=== PATIENT | female | born 1955 | race Caucasian/White ===

== ENCOUNTER → 2017-08-05 | Outpatient (CLI) | payer BC ==
[~2017-08-05] MED LIST: ESTR2TAB PO; FURO40TA PO; LEVO125T4 PO; ONETAB10 PO; PROP60CA PO; SYMB160A INH; TEMA15CA PO; TRAM50 PO; [UNRECOGNIZED DRUG - CODE] PO
--- NOTE | 2017-08-05 12:46 | RADRPT ---
EXAM DATE/TIME: 08/05/2017 11:50 [place] COMPARISON: No previous studies available for comparison. INDICATIONS : evaluate for pneumonia, pneumothorax and communicable diseases. Pre-op uterine surgery MEDICAL HISTORY : None. SURGICAL HISTORY : None. ENCOUNTER: Initial ACUITY: 1 day PAIN SCORE: 0/10 LOCATION: chest FINDINGS: The heart size is normal. There is minimal linear density at the lateral left base likely representin g minimal atelectasis. Otherwise, the lungs are clear. No effusion is seen. There is a mild dextrocur vature of the thoracic spine and a more prominent levocurvature of the thoracolumbar region. CONCLUSION: No acute disease. Dominic Hermosillo MD on August 05, 2017 at 12:43 Board Certified Radiologist. This report was verified electronically.
--- NOTE | 2017-08-05 19:04 | EKG ---
Date Performed: 08/05/2017 Time Performed: 10:28:00 PTAGE: 62 years EKG: SINUS BRADYCARDIA POSSIBLE LEFT ATRIAL ENLARGEMENT BORDERLINE ECG NO PREVIOUS TRACING DOCTOR: Austin Goodwin Interpretating Date/Time 08/05/2017 19:03:49
== END ==
LOC: CPRE 10:10
PROVIDERS: ATTEND Obstetrics & Gynecology Gynecologic Oncology
DX: Z01.810 Encounter for preprocedural cardiovascular examination (principal); Z01.811 Encounter for preprocedural respiratory examination; Z01.812 Encounter for preprocedural laboratory examination; Z01.818 Encounter for other preprocedural examination; R19.06 Epigastric swelling, mass or lump; R94.31 Abnormal electrocardiogram [ECG] [EKG]
CPT/HCPCS: 71046; 93005

== ENCOUNTER 2017-08-09 05:20 | Inpatient (IN) | END 2017-08-12 09:57 | disposition home or self-care (01) | DRG 738 | DX: C56.1 Malignant neoplasm of right ovary (principal); D27.1 Benign neoplasm of left ovary; N73.6 Female pelvic peritoneal adhesions (postinfective); R11.2 Nausea with vomiting, unspecified; T40.2X5A Adverse effect of other opioids, initial encounter; Z90.710 Acquired absence of both cervix and uterus; Z88.5 Allergy status to narcotic agent; Z88.8 Allergy status to other drugs, medicaments and biological substances; E03.9 Hypothyroidism, unspecified; J45.909 Unspecified asthma, uncomplicated ==

== ENCOUNTER 2017-09-02 05:51 | Day surgery (SDC) | payer BC ==
[~2017-09-02] VITALS: Ht 160 cm; Wt 62.3 kg
[2017-09-02] VITALS (7 sets, daily range): BP systolic 87–106; BP diastolic 56–69; PULSE 52–67; RESP 16–20; TEMP 97.5–97.7; O2SAT 98–100
[2017-09-02] MEDS ORDERED: TUMS500C CHEW (06:54)
[2017-09-02] MEDS ORDERED: CALC500T8 PO (06:54)
[2017-09-02] MEDS ORDERED: CHOL5000 PO (06:54)
[2017-09-02] MEDS ORDERED: CYAN25005 (06:54)
[2017-09-02] MEDS ORDERED: LACTCAP8 PO (06:54)
[2017-09-02] MEDS ORDERED: LORA0.5T PO (06:54)
[2017-09-02] MEDS ORDERED: TRIA1SPR6 EACH NARE (06:54)
[2017-09-02] MEDS ORDERED: DULC100C PO (06:54)
[2017-09-02] MEDS ORDERED: TYLE325T PO (06:54)
[2017-09-02] MEDS ORDERED: MIRA3350 PO (06:54)
[2017-09-02] MEDS ORDERED: VANCOMYCIN 1000 MG/NS 250 ML - implanted port/tunneled catheter IV SCH ×2 (07:00)
[2017-09-02] MEDS ORDERED: POVIDONE IODINE 5% (ANTISEPSIS KIT) 4 APPLICATIONS EACH NARE SCH (07:00)
[2017-09-02] MEDS ORDERED: ceFAZolin 2 GM PREMIX 50 ML - implanted port/tunneled catheter insertion IV SCH (07:00)
[2017-09-02] MEDS ORDERED: SODIUM CHLORIDE 0.9% 1000 ML IV SCH (07:00)
[2017-09-02] MEDS: CHLORHEXIDINE GLUCONATE 2 % 1 PACK (2 CLOTHS) TOPICAL SCH ×2 (07:44→07:45)
[2017-09-02] MEDS ORDERED: MIDAZOLAM HCL 5 MG/5 ML VIAL ONE (07:52)
[2017-09-02] MEDS ORDERED: fentaNYL CITRATE 250 MCG/5 ML AMP ONE (07:52)
[2017-09-02] MEDS ORDERED: LIDOCAINE 1%/EPINEPHrine 1:100,000 SOLN 30 ML VIAL ONE (07:55)
[2017-09-02] MEDS ORDERED: diphenhydrAMINE HCL 50 MG/ML VIAL ONE (08:40)
--- NOTE | 2017-09-02 09:20 | PD.RAD ---
Post Procedure Progress Note Pre Procedure Diagnosis: (1) Gynecologic malignancy Post Procedure Diagnosis: (1) Gynecologic malignancy Procedure Date: Sep 02, 2017 Supervising Radiologist: Jere Montoya JR Proceduralist/Assist: Juan David Doty, RT(R), Micheal Johnson RT(R) Anesthesia: Conscious Sedation Plan of Activity Patient to Unit: ROPU Patient Condition: Good See PACS Report for procedural detail/treatment Central Venous Access Device Procedure 1 Right Internal Jugular Infusaport Placement single lumen Thai: 8 Findings: Port in good position and functions well. OK to use. Plan F/U with IR or a physician in 10-14 days for a site check. Jr. Jan,Jere Wolf MD Sep 02, 2017 09:20
[2017-09-02] MEDS ORDERED: SODIUM CHLORIDE 0.9% FLUSH 10 ML FLUSH IVF PRN (09:30)
--- NOTE | 2017-09-02 11:22 | RADRPT ---
EXAM DATE: 09/02/2017 9:35 AM EDT AGE/SEX: 62 years / Female INDICATIONS: Patient presents with ovarian cancer in need of port placement for chemotherapy adminis tration. CLINICAL DATA: This is the patient's initial encounter. Patient reports that signs and symptoms have been present for 3 weeks and indicates a pain score of 2/10. MEDICAL/SURGICAL HISTORY: . HTN Migraines Asthma Hiatal hernia hypothyroidism . Hysterectomy L eft shoulder bone spur repair COMPARISON: No prior exams available for comparison. FLUORO TIME (min): 1.32 IMAGE SERIES: 3 SEDATION TIME (min): 45 MEDICATION(S): 2.5 mg midazolam (Versed) IV 125 mcg fentanyl (Sublimaze) IV 25 mg Benadryl Vancomycin within 2 hrs of procedure, Ancef (or alternative) within 1 hr of procedure. DEVICE(S): Right 8fr Xcela plus port . . PROCEDURE : 1. Continuous pulse oximetry and EKG monitoring. 2. Intravenous conscious sedation. 3. Ultrasound guidance for venous access. 4. Fluoroscopic guided implantable central venous port placement. The patient was placed supine. The neck was prepped in sterile fashion. Full sterile technique was u sed, including cap, mask, sterile gloves and gown, and a large sterile sheet. Hand hygiene and 2% ch lorhexidine Betadine was utilized per protocol for cutaneous antisepsis with appropriate dry time for site. Sterile gel and sterile probe cover were utilized for ultrasound guidance. The skin and sub cutaneous tissues were infiltrated with local anesthetic solution. Under direct ultrasound guidance, central venous access was accomplished in the targeted vessel. The ultrasound images depicting access guidance were stored and saved to PACS for permanent record. A s ubcutaneous pocket was created using blunt dissection. The port was introduced to the pocket. The c atheter tubing was fed through a subcutaneous tunnel to the venotomy site. The catheter tubing was c ut to a suitable length and then was introduced through a valved Peel-Away sheath and positioned with catheter tubing tip at the cavo-atrial junction level. The pocket incision was closed with subcutic ular Vicryl suture. Steri-Strips were applied. The port was flushed and locked with heparin solutio n per protocol. Sterile dressing was applied to the site. The patient tolerated the procedure well. Conscious sedation was performed with the prescribed dosages and duration as above in the presence of an independent trained radiology nurse to assist in the monitoring of the patient. EKG and oximetry remained stable throughout the procedure. The patient tolerated the procedure well and there were no complications. The patient was sent to post anesthesia recovery in stable condition. CONCLUSION: 1. Uncomplicated ultrasound and fluoroscopic guided implanted central venous port catheter placement as described in detail above. An 8 [employer] [place] Power port was placed. Electronically signed by: Jere Montoya MD 09/02/2017 11:21 AM EDT
[2017-09-02] MEDS ORDERED: ACETAMINOPHEN 325 MG TAB PO ONE (12:15)
== END 2017-09-02 12:34 | disposition home or self-care (01) ==
LOC: HRIP 05:51 → HROP 05:51 → HRIP 06:44 → HROP 12:34
PROVIDERS: ATTEND Obstetrics & Gynecology Gynecologic Oncology
DX: C56.9 Malignant neoplasm of unspecified ovary (principal); Z45.2 Encounter for adjustment and management of vascular access device; I10 Essential (primary) hypertension; J45.909 Unspecified asthma, uncomplicated; K44.9 Diaphragmatic hernia without obstruction or gangrene; E03.9 Hypothyroidism, unspecified; Z90.710 Acquired absence of both cervix and uterus
CPT/HCPCS: 36561; 76937; 77001; 99152; 99153; C1788; J0690; J1200; J1642; J2250; J3010; J3370; J7030; J7050

== ENCOUNTER 2017-09-15 22:07 | Inpatient (IN) | payer BC ==
[~2017-09-15] VITALS: Ht 162.6 cm; Wt 68.0 kg
[~2017-09-15 22:07] MED LIST changes: +CALC500T8 PO; +CHOL5000 PO; +CYAN25005; +DULC100C PO; +LACTCAP8 PO; +LORA0.5T PO; +MIRA3350 PO; +TRIA1SPR6 EACH NARE; +TUMS500C CHEW; +TYLE325T PO
[2017-09-15 22:17] VITALS: BP 104/76; PULSE 87; RESP 17; TEMP 99.1; O2SAT 96
[2017-09-15 23:53] LABS: AUTOMATED NEUTROPHIL # 1.5 TH/MM3 (1.8-7.7); BASOPHIL % 0.6 % (0.0-2.0); EOSINOPHIL # 0.1 TH/MM3 (0-0.4); EOSINOPHIL % 4.3 % (0.0-4.0); HEMATOCRIT 38.8 % (35.0-46.0); HEMOGLOBIN 13.1 GM/DL (11.6-15.3); LYMPH % 18.5 % (9.0-44.0); LYMPHOCYTE # 0.4 TH/MM3 (1.0-4.8); MEAN CELL VOLUME 95.7 FL (80.0-100.0); MEAN CORPUSCULAR HEMOGLOBIN 32.4 PG (27.0-34.0); MEAN CORPUSCULAR HGB CONC 33.8 % (32.0-36.0); MEAN PLATELET VOLUME 7.9 FL (7.0-11.0); MONO % 5.3 % (0.0-8.0); MONOCYTE # 0.1 TH/MM3 (0-0.9); NEUT % 71.3 % (16.0-70.0); PLATELET COUNT 197 TH/MM3 (150-450); RED BLOOD COUNT 4.05 MIL/MM3 (4.00-5.30); RED CELL DISTRIBUTION WIDTH 12.2 % (11.6-17.2); WHITE BLOOD COUNT 2.1 TH/MM3 (4.0-11.0)
--- NOTE | 2017-09-15 23:58 | RADRPT ---
EXAM DATE: 09/15/2017 11:56 PM EDT AGE/SEX: 62 years / Female INDICATIONS: Fever, patient undergoing chemotherapy for ovarian cancer. CLINICAL DATA: This is the patient's initial encounter. Patient reports that signs and symptoms have been present for 1 day and indicates a pain score of 0/10. MEDICAL/SURGICAL HISTORY: Carcinoma, ovarian. . [id number] COMPARISON: [facility] [place] CHEST PA & LAT, 08/05/2017. . FINDINGS: PA and lateral views of the chest demonstrate the lungs to be symmetrically aerated without evidence of mass, infiltrate or effusion. The cardiomediastinal contours are unremarkable. Osseous structures are intact. Right IJ Utbsus-w-Doqw catheter in excellent position CONCLUSION: The lungs are clear. Right IJ Lmhlsf-t-Jhvg catheter in good position. Electronically signed by: Gerardo Laird MD 09/15/2017 11:57 PM EDT
[2017-09-16] VITALS (9 sets, daily range): BP systolic 91–106; BP diastolic 53–74; PULSE 69–87; RESP 16–20; TEMP 98.4–101.9; O2SAT 94–98
[2017-09-16 00:08] LABS: BACTERIA, URINE OCC /hpf; BILIRUBIN, URINE NEG (NEG); BLOOD, URINE NEG (NEG); GLUCOSE,URINE NEG (NEG); KETONE, URINE TRACE mg/dL (NEG); MUCUS URINE FEW /lpf (OCC); NITRITE,URINE NEG (NEG); SQUAMOUS EPITHELIAL CELL URINE 2 /hpf (0-5); URINE COLOR YELLOW (YELLW/STRAW); URINE LEUKOCYTE ESTERASE NEG (NEG)
--- NOTE | 2017-09-16 00:13 | PD ---
HPI Chief Complaint: Fever Time Seen by Provider: 22:55 Travel History International Travel<30 days: No Contact w/Intl Traveler<30days: No Traveled to known affect area: No History of Present Illness HPI She is a 62-year-old female who has ovarian cancer who recently had a total hysterectomy on August 09 and then started Taxol and cisplatin for chemotherapy a week ago she had a shaking chill episode last night and then today again she had shaking chills her took her temp it was 101.3 she denies cough she denies sore throat she denies dysuria she says she has not moved her bowels in 2 days because she has been on oxycodone which was switched she was on tramadol now she is on a stronger pain medication. She is followed by her oncologist and she is coming in knowing that she is immune compromised immune suppressed as well as having a fever PFSH Past Medical History Cancer: Yes Cardiovascular Problems: No Chemotherapy: Yes Diabetes: No Endocrine: Yes Gastrointestinal Disorders: Yes Genitourinary: No Hepatitis: No Hiatal Hernia: Yes Hypertension: Yes Immune Disorder: No Medical other: No Musculoskeletal: No Neurologic: No Psychiatric: No Reproductive: Yes Respiratory: Yes (asthma) Migraines: Yes Thyroid Disease: Yes ?: Not Past Surgical History AICD: No Body Medical Devices: R SCREW IN FOOT Hysterectomy: Yes Joint Replacement: No Pacemaker: No Other Surgery: Yes Social History Alcohol Use: No Tobacco Use: No Substance Use: No Allergies-Medications (Allergen,Severity, Reaction): Coded Allergies: mold (Verified Allergy, Severe, Shortness of Breath, 09/15/17) BLACK MOLD CAUSES PULM EDEMA adhesive (Verified Adverse Reaction, Severe, Irritation, 09/15/17) PT CAN TOLERATE PAPER TAPE codeine (Verified Adverse Reaction, Severe, Itching, 09/15/17) Reported Meds & Prescriptions Reported Meds & Active Scripts Active Reported Oxycodone (Oxycodone HCl) 5 Mg Cap 5 Mg PO Q4H PRN Lorazepam 0.5 Mg Tab 0.5 Mg PO Q6H PRN Tylenol (Acetaminophen) 325 Mg Tab 325 Mg PO Q4H PRN Tums (Calcium Carbonate (Antacid)) 500 Mg Chew 500 Mg CHEW Dulcolax Stool Softener (Docusate Sodium) 100 Mg Cap 100 Mg PO BID Miralax Powder (Polyethylene Glycol 3350 Powder) 17 Gm Powd 17 Gm PO DAILY Mix and dissolve one measuring cap-ful (17 grams) in water or juice. Probiotic (Lactobacillus Acidophilus) 10 Billion Cell Cap 1 Cap PO DAILY Vitamin B12 (Cyanocobalamin (Vitamin B-12)) 2,500 Mcg Tab.chew 2 Tab DAILY Vitamin D3 (Cholecalciferol) 5,000 Unit Cap 5,000 Units PO DAILY Calcium Oyster Shell (Calcium Carbonate) 1,250 Mg Tab 1,200 Mg PO DAILY 1,250 mg calcium carbonate (500 mg elemental calcium) Nasacort Allergy 24Hr Nasal (Triamcinolone Nasal) 55 Mcg Spr 1 [place] EACH NARE BID One Daily For Women 50+A (Multiple Vitamins W/ Minerals) 400 Mcg-120 Mg Tab 1 Tab PO DAILY Wal-Dryl Allergy (Diphenhydramine HCl) 25 Mg Cap 1 Caplet PO DAILY Temazepam 15 Mg Cap 15 Mg PO HS PRN Symbicort Inh (Budesonide/Formoterol Fumarate) 160-4.5 Mcg/Act Aero 2 Puff INH Q12HR Furosemide 40 Mg Tab 40 Mg PO DAILY PRN TAKES WHEN LEG SWELLING OCCURS Estradiol 2 Mg Tab 2 Mg PO DAILY Propranolol ER 24 HR (Propranolol HCl) 60 Mg Cap 60 Mg PO DAILY Levothyroxine (Levothyroxine Sodium) 125 Mcg Tab 125 Mcg PO HS Review of Systems Except as stated in HPI: all other systems reviewed are Neg General / Constitutional: Positive: Fever, Chills Physical Exam Narrative GENERAL: non toxic appearing SKIN: Warm and dry. HEAD: Atraumatic. Normocephalic. EYES: Pupils equal and round. No scleral icterus. No injection or drainage. ENT: No nasal bleeding or discharge. Mucous membranes pink and moist. NECK: Trachea midline. No JVD. CARDIOVASCULAR: Regular rate and rhythm. chest right port under skin no sign of infection RESPIRATORY: No accessory muscle use. Clear to auscultation. Breath sounds equal bilaterally. GASTROINTESTINAL: Abdomen soft, non-tender, nondistended. Hepatic and splenic margins not palpable. MUSCULOSKELETAL: Extremities without clubbing, cyanosis, or edema. No obvious deformities. NEUROLOGICAL: Awake and alert. No obvious cranial nerve deficits. Motor grossly within normal limits. Five out of 5 muscle strength in the arms and legs. Normal speech. PSYCHIATRIC: Appropriate mood and affect; insight and judgment normal. Data Data Last Documented VS Vital Signs Date Time Temp Pulse Resp B/P (MAP) Pulse Ox O2 Delivery O2 Flow Rate FiO2 09/15/17 22:37 Room Air 09/15/17 22:17 99.1 87 17 104/76 (85) 96 Orders Orders Complete Blood Count With Diff (09/15/17 23:08) Comprehensive Metabolic Panel (09/15/17 23:08) Ckmb (Isoenzyme) Profile (09/15/17 23:08) Troponin I (09/15/17 23:08) Lipase (09/15/17 23:08) Urinalysis - C+S If Indicated (09/15/17 23:08) Chest, Pa & Lat (09/15/17 23:08) Blood Culture (09/15/17 23:31) Vancomycin Inj (Vancomycin Inj) (09/16/17 00:30) Cefepime Inj (Maxipime Inj) (09/16/17 00:30) Admit Order (Ed Use Only) (09/16/17 00:45) Labs Laboratory Tests Test 09/15/17 23:30 White Blood Count 2.1 TH/MM3 Red Blood Count 4.05 MIL/MM3 Hemoglobin 13.1 GM/DL Hematocrit 38.8 % Mean Corpuscular Volume 95.7 FL Mean Corpuscular Hemoglobin 32.4 PG Mean Corpuscular Hemoglobin Concent 33.8 % Red Cell Distribution Width 12.2 % Platelet Count 197 TH/MM3 Mean Platelet Volume 7.9 FL Neutrophils (%) (Auto) 71.3 % Lymphocytes (%) (Auto) 18.5 % Monocytes (%) (Auto) 5.3 % Eosinophils (%) (Auto) 4.3 % Basophils (%) (Auto) 0.6 % Neutrophils # (Auto) 1.5 TH/MM3 Lymphocytes # (Auto) 0.4 TH/MM3 Monocytes # (Auto) 0.1 TH/MM3 Eosinophils # (Auto) 0.1 TH/MM3 Basophils # (Auto) 0.0 TH/MM3 CBC Comment DIFF FINAL Differential Comment Urine Color YELLOW Urine Turbidity CLEAR Urine pH 6.0 Urine Specific [place] 1.004 Urine Protein NEG mg/dL Urine Glucose (UA) NEG mg/dL Urine Ketones TRACE mg/dL Urine Occult Blood NEG Urine Nitrite NEG Urine Bilirubin NEG Urine Urobilinogen LESS THAN 2 mg/dL Urine Leukocyte Esterase NEG Urine RBC 1 /hpf Urine WBC 1 /hpf Urine Squamous Epithelial Cells 2 /hpf Urine Bacteria OCC /hpf Urine Mucus FEW /lpf Microscopic Urinalysis Comment CULT NOT INDICATED Blood Urea Nitrogen 11 MG/DL Creatinine 1.09 MG/DL Random Glucose 103 MG/DL Total Protein 6.3 GM/DL Albumin 3.0 GM/DL Calcium Level 8.7 MG/DL Alkaline Phosphatase 272 U/L Aspartate Amino Transf (AST/SGOT) 116 U/L Alanine Aminotransferase (ALT/SGPT) 130 U/L Total Bilirubin 0.8 MG/DL Sodium Level 130 MEQ/L Potassium Level 3.5 MEQ/L Chloride Level 91 MEQ/L Carbon Dioxide Level 28.6 MEQ/L Anion Gap 10 MEQ/L Estimat Glomerular Filtration Rate 51 ML/MIN Total Creatine Kinase 23 U/L Troponin I LESS THAN 0.02 NG/ML Lipase 66 U/L MDM Medical Decision Making Medical Screen Exam Complete: Yes Emergency Medical Condition: Yes Differential Diagnosis fever and chemo risk of occult bacterial infection in immune compromised state , pt could have viral illness fever or uti or PNA or bacteremia , Cental line port infection Narrative Course Vanco 1gm and Cefepime 2 gm and admit reverse isolation urine and Chest XR did not reveal source possible port infection Physician Communication Physician Communication Spoke to Dr severino of ONC for doctor Multis CLERK CARRIER /ONC and will admit and consult CLERK CAR[facility] ONC Diagnosis Primary Impression: Fever and neutropenia Admitting Information Admitting Physician Requests: Admit Td Chavira MD Sep 16, 2017 00:13
[2017-09-16 00:17] LABS: ALT (GPT) 130 U/L (10-53); AST (GOT) 116 U/L (15-37); BICARBONATE 28.6 MEQ/L (21.0-32.0); BLOOD UREA NITROGEN 11 MG/DL (7-18); CALCIUM 8.7 MG/DL (8.5-10.1); CHLORIDE 91 MEQ/L (98-107); CREATININE 1.09 MG/DL (0.50-1.00); GLOMERULAR FILTRATION RATE 51 ML/MIN (>89); GLUCOSE,RANDOM 103 MG/DL (74-106); SODIUM (NA) 130 MEQ/L (136-145)
[2017-09-16 00:21] LABS: ALKALINE PHOSPHATASE 272 U/L (45-117); TOTAL BILIRUBIN ADULT 0.8 MG/DL (0.2-1.0); TOTAL PROTEIN 6.3 GM/DL (6.4-8.2); TROPONIN I LESS THAN 0.02 NG/ML (0.02-0.05)
[2017-09-16] MEDS ORDERED: VANCOMYCIN INJ 1,000 MG in SODIUM CHLOR 0.9% 250 ML INJ 250 ML IV ONE (00:30)
[2017-09-16] MEDS ORDERED: CEFEPIME INJ 2,000 MG in SODIUM CHLORIDE 0.9% INJ 100 ML IV ONE (00:30)
[2017-09-16] MEDS ORDERED: SENNOSIDES 8.6 MG TAB PO PRN (01:00)
[2017-09-16] MEDS ORDERED: NALOXONE HCL 0.4 MG/ML AMP IV PUSH PRN (01:00)
[2017-09-16] MEDS ORDERED: Vancomycin Consult Pharmacy 1 EA OTHER SCH (01:00)
[2017-09-16] MEDS ORDERED: SODIUM CHLORIDE 0.9% FLUSH 10 ML FLUSH IV FLUSH PRN (01:00)
[2017-09-16] MEDS ORDERED: BISACODYL 10 MG SUPP RECTAL PRN (01:00)
[2017-09-16] MEDS ORDERED: MAGNESIUM HYDROXIDE SUSP 30 ML CUP PO PRN (01:00)
[2017-09-16] MEDS ORDERED: LACTULOSE SYRUP 20 GM/30 ML CUP PO PRN (01:00)
[2017-09-16] MEDS ORDERED: ONDANSETRON ODT 4 MG TAB PO PRN (01:00)
--- NOTE | 2017-09-16 01:33 | HHI.HP ---
[facility] Service [facility] Primary Care Physician Betito Fonseca MD Admission Diagnosis neutropenic fever Diagnoses: Chief Complaint: fever Travel History International Travel<30 Days: No Contact w/Intl Traveler <30 Da: No Traveled to Known Affected Are: No History of Present Illness 62 y/o female with a history of ovarian cancer, asthma, and hypothyroidism presented to the ED with complaints of a fever of 101 at home. Patient just received her first chemo treatment on Wednesday and was told that if she ran a fever to come to the ED. She has associated chills and nausea. Denies any chest pain or sob. STOCK LAYER Oncologist: Dr. Paul Review of Systems Except as stated in HPI: all other systems reviewed are Neg Past Family Social History Past Medical History Asthma Hypothyroidism Migraine Mixed hyperlipidemia Past Surgical History Hysterectomy RIGHT BUNIONECTOMY SHOULDER SURGERY Colonoscopy in 2017 Reported Medications Reported Meds & Active Scripts Active Ultram (Tramadol HCl) 50 Mg Tab 50 Mg PO Q4H PRN 7 Days Reported Lorazepam 0.5 Mg Tab 0.5 Mg PO Q6H PRN Tylenol (Acetaminophen) 325 Mg Tab 325 Mg PO Q4H PRN Tums (Calcium Carbonate (Antacid)) 500 Mg Chew 500 Mg CHEW Dulcolax Stool Softener (Docusate Sodium) 100 Mg Cap 100 Mg PO BID Miralax Powder (Polyethylene Glycol 3350 Powder) 17 Gm Powd 17 Gm PO DAILY Mix and dissolve one measuring cap-ful (17 grams) in water or juice. Probiotic (Lactobacillus Acidophilus) 10 Billion Cell Cap 1 Cap PO DAILY Vitamin B12 (Cyanocobalamin (Vitamin B-12)) 2,500 Mcg Tab.chew 2 Tab DAILY Vitamin D3 (Cholecalciferol) 5,000 Unit Cap 5,000 Units PO DAILY Calcium Oyster Shell (Calcium Carbonate) 1,250 Mg Tab 1,200 Mg PO DAILY 1,250 mg calcium carbonate (500 mg elemental calcium) Nasacort Allergy 24Hr Nasal (Triamcinolone Nasal) 55 Mcg Spr 1 [place] EACH NARE BID One Daily For Women 50+A (Multiple Vitamins W/ Minerals) 400 Mcg-120 Mg Tab 1 Tab PO DAILY Wal-Dryl Allergy (Diphenhydramine HCl) 25 Mg Cap 1 Caplet PO DAILY Temazepam 15 Mg Cap 15 Mg PO HS PRN Symbicort Inh (Budesonide/Formoterol Fumarate) 160-4.5 Mcg/Act Aero 2 Puff INH Q12HR Furosemide 40 Mg Tab 40 Mg PO DAILY PRN TAKES WHEN LEG SWELLING OCCURS Estradiol 2 Mg Tab 2 Mg PO DAILY Propranolol ER 24 HR (Propranolol HCl) 60 Mg Cap 60 Mg PO DAILY Levothyroxine (Levothyroxine Sodium) 125 Mcg Tab 125 Mcg PO HS Allergies: Coded Allergies: mold (Verified Allergy, Severe, Shortness of Breath, 09/15/17) BLACK MOLD CAUSES PULM EDEMA adhesive (Verified Adverse Reaction, Severe, Irritation, 09/15/17) PT CAN TOLERATE PAPER TAPE codeine (Verified Adverse Reaction, Severe, Itching, 09/15/17) Active Ordered Medications Current Medications Medications (Trade) Dose Ordered Sig/Elmo Route Start Time Stop Time Status Last Admin Vancomycin HCl 1000 mg/Sodium Chloride 250 ml @ 250 mls/hr ONCE ONCE IV 09/16/17 00:30 09/16/17 01:29 09/16/17 01:15 Pharmacy Profile Note 0 ml @ 0 mls/hr UNSCH OTHER 09/16/17 01:00 Cefepime HCl 2000 mg/Sodium Chloride 100 ml @ 200 mls/hr Q8H IV 09/16/17 08:30 Sodium Chloride 1,000 ml @ 70 mls/hr [id number] IV 09/16/17 00:52 (NS Flush) 2 ml UNSCH PRN IV FLUSH 09/16/17 01:00 (NS Flush) 2 ml BID IV FLUSH 09/16/17 09:00 (Tylenol) 650 mg Q4H PRN PO 09/16/17 01:00 (Zofran Odt) 4 mg Q6H PRN PO 09/16/17 01:00 (Lovenox Inj) 40 mg Q24H SQ 09/16/17 01:00 (Narcan Inj) 0.4 mg UNSCH PRN IV PUSH 09/16/17 01:00 (Ngoc-Colace) 1 tab BID PO 09/16/17 09:00 (Milk Of Magnesia Liq) 30 ml Q12H PRN PO 09/16/17 01:00 (Senokot) 17.2 mg Q12H PRN PO 09/16/17 01:00 (Dulcolax Supp) 10 mg DAILY PRN RECTAL 09/16/17 01:00 (Lactulose Liq) 30 ml DAILY PRN PO 09/16/17 01:00 Family History Mom: Breast CA, colon CA and melanoma Brother: colon cancer Social History Patient denies any tobacco, alcohol and illicit drug use Physical Exam Vital Signs Vital Signs Date Time Temp Pulse Resp B/P (MAP) Pulse Ox O2 Delivery O2 Flow Rate FiO2 09/16/17 00:50 100.3 09/15/17 22:37 Room Air 09/15/17 22:17 99.1 87 17 104/76 (85) 96 Room Air Physical Exam GENERAL: This is a well-nourished, well-developed patient, in no apparent distress. SKIN: No rashes, ecchymoses or lesions. Cool and dry. HEAD: Atraumatic. Normocephalic. EYES: Pupils equal round and reactive. Extraocular motions intact. CARDIOVASCULAR: Regular rate and rhythm without murmurs, gallops, or rubs. RESPIRATORY: Clear to auscultation. Breath sounds equal bilaterally. No wheezes , rales, or rhonchi. GASTROINTESTINAL: Abdomen soft, non-tender, nondistended. No guarding. MUSCULOSKELETAL: Extremities without clubbing, cyanosis, or edema. No calf tenderness. NEUROLOGICAL: Awake and alert. Normal speech. Laboratory Laboratory Tests Test 09/15/17 23:30 White Blood Count 2.1 Red Blood Count 4.05 Hemoglobin 13.1 Hematocrit 38.8 Mean Corpuscular Volume 95.7 Mean Corpuscular Hemoglobin 32.4 Mean Corpuscular Hemoglobin Concent 33.8 Red Cell Distribution Width 12.2 Platelet Count 197 Mean Platelet Volume 7.9 Neutrophils (%) (Auto) 71.3 Lymphocytes (%) (Auto) 18.5 Monocytes (%) (Auto) 5.3 Eosinophils (%) (Auto) 4.3 Basophils (%) (Auto) 0.6 Neutrophils # (Auto) 1.5 Lymphocytes # (Auto) 0.4 Monocytes # (Auto) 0.1 Eosinophils # (Auto) 0.1 Basophils # (Auto) 0.0 CBC Comment DIFF FINAL Differential Comment Urine Color YELLOW Urine Turbidity CLEAR Urine pH 6.0 Urine Specific [place] 1.004 Urine Protein NEG Urine Glucose (UA) NEG Urine Ketones TRACE Urine Occult Blood NEG Urine Nitrite NEG Urine Bilirubin NEG Urine Urobilinogen LESS THAN 2 Urine Leukocyte Esterase NEG Urine RBC 1 Urine WBC 1 Urine Squamous Epithelial Cells 2 Urine Bacteria OCC Urine Mucus FEW Microscopic Urinalysis Comment CULT NOT INDICATED Blood Urea Nitrogen 11 Creatinine 1.09 Random Glucose 103 Total Protein 6.3 Albumin 3.0 Calcium Level 8.7 Alkaline Phosphatase 272 Aspartate Amino Transf (AST/SGOT) 116 Alanine Aminotransferase (ALT/SGPT) 130 Total Bilirubin 0.8 Sodium Level 130 Potassium Level 3.5 Chloride Level 91 Carbon Dioxide Level 28.6 Anion Gap 10 Estimat Glomerular Filtration Rate 51 Total Creatine Kinase 23 Troponin I LESS THAN 0.02 Lipase 66 Date/Time Source Procedure Growth Status 09/15/17 23:50 Blood Peripheral Aerobic Blood Culture Pending Received 09/15/17 23:50 Blood Peripheral Anaerobic Blood Culture Pending Received Result Diagram: 09/15/17 2330 09/15/17 2330 Imaging Last Impressions Chest X-Ray 09/15/17 2308 Signed Impressions: CONCLUSION: The lungs are clear. Right IJ Glyict-w-Icpl catheter in good position. Caprini VTE Risk Assessment Caprini VTE Risk Assessment: Mod/High Risk (score >= 2) Caprini Risk Assessment Model Point Value = 1 Point Value = 2 Point Value = 3 Point Value = 5 Age 41-60 Minor surgery BMI > 25 kg/m2 Swollen legs Varicose veins or History of unexplained or recurrent spontaneous Oral contraceptives or hormone replacement Sepsis (< 1 month) Serious lung disease, including pneumonia (< 1 month) Abnormal pulmonary function Acute myocardial infarction Congestive heart failure (< 1 month) History of inflammatory bowel disease Medical patient at bed rest Age 61-74 Arthroscopic surgery Major open surgery (> 45 min) Laparoscopic surgery (> 45 min) Malignancy Confined to bed (> 72 hours) Immobilizing plaster cast Central venous access Age >= 75 History of VTE Family history of VTE Factor V Leiden Prothrombin [id number] Lupus anticoagulant Anticardiolipin antibodies Elevated serum homocysteine Heparin-induced thrombocytopenia Other congenital or acquired thrombophilia Stroke (< 1 month) Elective arthroplasty Hip, pelvis, or leg fracture Acute spinal cord injury (< 1 month) Prophylaxis Regimen Total Risk Factor Score Risk Level Prophylaxis Regimen 0-1 Low Early ambulation 2 Moderate Order ONE of the following: *Sequential Compression Device (SCD) *Heparin 5000 units SQ BID 3-4 Higher Order ONE of the following medications: *Heparin 5000 units SQ TID *Enoxaparin/Lovenox 40 mg SQ daily (WT < 150 kg, CrCl > 30 mL/min) *Enoxaparin/Lovenox 30 mg SQ daily (WT < 150 kg, CrCl > 10-29 mL/min) *Enoxaparin/Lovenox 30 mg SQ BID (WT < 150 kg, CrCl > 30 mL/min) AND/OR *Sequential Compression Device (SCD) 5 or more Highest Order ONE of the following medications: *Heparin 5000 units SQ TID (Preferred with Epidurals) *Enoxaparin/Lovenox 40 mg SQ daily (WT < 150 kg, CrCl > 30 mL/min) *Enoxaparin/Lovenox 30 mg SQ daily (WT < 150 kg, CrCl > 10-29 mL/min) *Enoxaparin/Lovenox 30 mg SQ BID (WT < 150 kg, CrCl > 30 mL/min) AND *Sequential Compression Device (SCD) Assessment and Plan Assessment and Plan 62 y/o female with a history of ovarian cancer, asthma, and hypothyroidism presented to the ED with complaints of a fever of 101 at home. Neutropenic fever s/p chemotherapy -Vancomycin and cefepime IV -Neutropenic precautions -Consult mortgage loan processor onc if needed Transaminitis, unspecific, possible secondary to chemo treatment -Trend liver enzymes, repeat at noon -Consult gi if levels worsen and consider liver ultrasound Hyponatremia, na 130 -IVF for hydration -Trend electrolytes Hypothyroid -Resume home medications DVT prophylaxis: Lovenox Discussed Condition With Patient and RN Physician Certification 2 Midnight Certification Type: Admission for Inpatient Services Order for Inpatient Services The services are ordered in accordance with Medicare regulations or non- Medicare payer requirements, as applicable. In the case of services not specified as inpatient-only, they are appropriately provided as inpatient services in accordance with the 2-midnight benchmark. Estimated LOS (days): 2 days is the estimated time the patient will need to remain in the hospital, assuming treatment plan goals are met and no additional complications. Post-Hospital Plan: Home Awilda Hodge Sep 16, 2017 01:33
[2017-09-16] MEDS ORDERED: TEMAZEPAM 15 MG CAP PO PRN (01:45)
[2017-09-16] MEDS: SODIUM CHLOR 0.9% 1000 ML INJ 1,000 ML IV SCH ×2 (02:00→15:10)
[2017-09-16] MEDS: ENOXAPARIN SODIUM 40 MG/0.4 ML SYRINGE SQ SCH (02:01)
[2017-09-16] MEDS: LORazepam 0.5 MG TAB PO PRN (02:26)
[2017-09-16] MEDS ORDERED: OXYC1CAP PO (08:52)
[2017-09-16] MEDS: BUDESONIDE-FORMOTEROL 160/4.5 MCG INHALER INH SCH ×2 (09:00→21:00)
[2017-09-16] MEDS: PROPRANOLOL HCL LA 60 MG CAP PO SCH (09:00)
[2017-09-16] MEDS: FLUTICASONE PROPIONATE 50 MCG/ACT 16 GM NASAL SPRAY EACH NARE SCH ×2 (10:50→21:00)
[2017-09-16] MEDS: MULTIVITAMIN TAB PO SCH (10:51)
[2017-09-16] MEDS: CALCIUM CARBONATE 1.25 GM (CA 500 MG) TAB PO SCH (10:52)
[2017-09-16] MEDS: LACTOBACILLUS ACIDOPHILUS TAB PO SCH (10:52)
[2017-09-16] MEDS: DOCUSATE SODIUM 50 MG/SENNA 8.6 MG TAB PO SCH ×2 (10:53→21:55)
[2017-09-16] MEDS: CYANOCOBALAMIN 1,000 MCG TAB PO SCH (10:53)
[2017-09-16] MEDS: DOCUSATE SODIUM 100 MG CAP PO SCH ×2 (10:54→21:55)
[2017-09-16] MEDS: ESTRADIOL 1 MG TAB PO SCH (10:54)
[2017-09-16] MEDS: POLYETHYLENE GLYCOL 17 GM PKG PO SCH (10:56)
[2017-09-16] MEDS: SODIUM CHLORIDE 0.9% FLUSH 10 ML FLUSH IV FLUSH SCH ×2 (10:56→21:56)
[2017-09-16] MEDS: CHOLECALCIFEROL (VIT D3) 5000 UNIT CAP PO SCH (10:57)
--- NOTE | 2017-09-16 12:19 | HHI.PR ---
Addendum to Inpatient Note Addendum Reason: Additional Documentation Additional Information The patient was resting comfortably in bed. She stated that the first couple days after chemotherapy 1 okay but then afterwards it was like she hit a brick wall. She is currently feeling better but requests pain medication. Continue IV antibiotics. Follow CBC and CMP. The patient's oncologist has been consulted, will follow up recommendations. Follow culture data. Brian Webb DO Sep 16, 2017 12:19
[2017-09-16] MEDS: CEFEPIME INJ 2,000 MG in SODIUM CHLORIDE 0.9% INJ 100 ML IV SCH ×2 (12:22→19:42)
[2017-09-16] MEDS ORDERED: VANCOMYCIN INJ 1,000 MG in SODIUM CHLOR 0.9% 250 ML INJ 250 ML IV SCH (12:30)
[2017-09-16 14:36] LABS: ALBUMIN 2.5 GM/DL (3.4-5.0); AST (GOT) 108 U/L (15-37); BICARBONATE 28.5 MEQ/L (21.0-32.0); BLOOD UREA NITROGEN 12 MG/DL (7-18); CALCIUM 8.3 MG/DL (8.5-10.1); CHLORIDE 95 MEQ/L (98-107); CREATININE 1.05 MG/DL (0.50-1.00); GLOMERULAR FILTRATION RATE 53 ML/MIN (>89); GLUCOSE,RANDOM 117 MG/DL (74-106); SODIUM (NA) 133 MEQ/L (136-145)
[2017-09-16 14:37] LABS: ALT (GPT) 121 U/L (10-53)
[2017-09-16 14:39] LABS: ALKALINE PHOSPHATASE 269 U/L (45-117); TOTAL BILIRUBIN ADULT 0.6 MG/DL (0.2-1.0); TOTAL PROTEIN 5.5 GM/DL (6.4-8.2)
--- NOTE | 2017-09-16 17:16 | RADRPT ---
EXAM DATE: 09/16/2017 3:42 PM EDT AGE/SEX: 62 years / Female INDICATIONS: Constipation for 4 days. CLINICAL DATA: This is the patient's initial encounter. Patient reports that signs and symptoms have been present for 4 - 6 days and indicates a pain score of 3/10. MEDICAL/SURGICAL HISTORY: Hypertension. Carcinoma, ovarian. Hiatal hernia. Thyroid disease. H ysterectomy. COMPARISON: No prior exams available for comparison. FINDINGS: Single supine frontal view of the abdomen demonstrates air within bowel in a nonobstructive pattern. No organomegaly or concerning calcifications are seen. The calcifications in the inferior pelvis lik rangel represent phleboliths. No concerning mass effect is present. There is levoscoliosis of the lumbar spine. CONCLUSION: No acute abdominal abnormality is identified. Additionally, no significant stool is appreciated withi n the colon. Electronically signed by: Dominic Petty MD 09/16/2017 5:15 PM EDT
--- NOTE | 2017-09-16 18:00 | MB ---
cc: Annie Paul MD,Denita Fonseca,Betito Hodge,Awilda Webb,Brian Hung DO DATE: 09/16/2017 PHYSICIANS REQUESTING CONSULTATION: Dr. Awilda Hodge and Dr. Brian Webb. REASON FOR CONSULTATION: Ovarian cancer. REASON FOR ADMISSION: Febrile neutropenia. 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 She was counseled regarding options. We recommended Taxol and carboplatin chemotherapy and she received her first cycle of line 1 Taxol at 175 plus carboplatin AUC of 6 eight days ago. She presents to the hospital and is admitted now, reporting that she felt febrile, aches, pain, generalized flu-like symptoms, although they were unusual for her as she reports it is very uncommon for her to become febrile. She and her took her temperature; it was initially 100.5 and then was 101.3 and after that, they presented to the emergency room. Since being admitted, blood cultures have been obtained and no growth to date so far. Urinalysis was nonconcerning and culture was felt not indicated. Chest x-ray showed clear lung jackson. She has been started on IV fluid, started on broad spectrum antibiotics, given vancomycin and cefepime and supportive care. She is seen now accompanied by her . She is feeling poorly. Whether or not this is directly related to the chemotherapy is uncertain, as the level of neutropenia is generally not associated with chemotherapy-induced fever. Labs on admission, white count 2.1 with an absolute neutrophil count of 1.3, H and H 13.1 and 38.8, platelets 197. Electrolytes showed a BUN and creatinine of 12 and 1.05. Her transaminases are elevated. Serum albumin low at 2.5 with an AST of 116 and ALT of 130. Alkaline phosphatase 272. Bilirubin is normal at 0.8. She has also had a plain film of the abdomen, results of which are pending. PAST MEDICAL HISTORY: Ovarian cancer, stage IC, grade 3; asthma, migraine headaches, hypothyroidism, elevated lipids. PAST SURGICAL HISTORY: Includes the ovarian cancer surgery, previous hysterectomy. She has had a right bunionectomy. She has had shoulder surgery. ALLERGIES: CODEINE, MOLD EXTRACTS. MEDICATIONS: As listed in the chart. She has symptomatic medications also around the time of chemotherapy including Ativan, Zofran, Percocet, as well as [id number] pain medications. Also, she is on Lasix, levothyroxine, propranolol and aerosol inhaler. REVIEW OF SYSTEMS: As per history of present illness. She does not have any focal symptoms other than headache and then generalized aches and feeling feverish. She has not had a cough. She did have some upset stomach, nausea and vomiting that she attributes to chemotherapy. No chest pain or shortness of breath. No abdominal pain other than constipation. It has been several days since bowel movement. She has had no bright red blood or melenotic stool changes. No vaginal bleeding. No pain or swelling in her extremities. No one in the family has been sick. PHYSICAL EXAMINATION: VITAL SIGNS: Maximum temperature since being at the hospital has been 100.3, most recently 99.2; pulse 79, respirations 18, blood pressure 91/53, O2 saturation is 96%. GENERAL: She is alert and oriented x 3. She is comfortable, appears to feel poorly, but in no acute distress. HEENT: Pupils equal, round and reactive to light. Mucous membranes are moist. SKIN: Warm and dry. NECK: There is no cervical or supraclavicular adenopathy. CARDIOVASCULAR: Normal S1 and S2. Regular rate and rhythm. BACK: No CVA tenderness or spinal point tenderness. ABDOMEN: Nondistended, is nontender. No rebound or guarding. Hypoactive bowel sounds. Midline vertical incision healing well. EXTREMITIES: No palpable cords. Neurovascular intact. Range of motion intact. Time is spent in discussion with Manju Farias and her , reviewing that she is feeling poorly, she had a tough go of it with chemotherapy and we spent some time answering questions and discussing what is expected with the subsequent cycle and some steps that could be taken with premedication to help reduce nausea and headache and pain. We will follow her blood counts daily to see how low her account to go during the stefani from her chemotherapy. It is possible that her current febrile illness is unrelated to chemotherapy, as it may be a viral illness. Nevertheless, we will follow the counts, cover her with broad spectrum antibiotics until this can be clarified. Discussed also the potential need to add Neulasta stem cell support to her next treatment. She expressed concern about whether or not it is covered by insurance. We will try to resolve that question when the time comes for her next cycle, but an overview of that medication is discussed versus considering a slight reduction in her chemotherapy doses, especially if her stefani goes to a point where her absolute neutrophil count is below 500. Discussion ensued. Questions were answered. They expressed good understanding. ASSESSMENT: 1. Stage IC, grade 3, ovarian cancer. 2. Post-chemotherapy day 8, status post Taxol and carboplatin chemotherapy, line 1, cycle 1. 3. Febrile illness. 4. Possibly chemotherapy-induced neutropenia, but currently with white cell count of 2.1 and absolute neutrophil count of 1.3. PLAN: 1. I am very grateful for the excellent medical care. Continue present management with IV fluids, broad spectrum antibiotics and supportive care. 2. Check daily labs including CBC with differential to assess for the magnitude of her chemotherapy-induced stefani. 3. Symptomatic intervention as needed for constipation as per her request if the abdominal film shows no acute problem, physical exam shows no acute abdominal change. With the subsequent outpatient chemotherapy, we will modify to premedicate with antinausea and pain medications. May consider adding Neulasta stem cell support. May need to consider reducing dose of Taxol and carboplatin incrementally. Thank you for consultation. We will follow along in her care. MD JANELL Hawkins/ILDA , 05:15 PM , 05:59 PM
[2017-09-16] MEDS ORDERED: MAGNESIUM CITRATE SOLN 300 ML BTL PO PRN (20:45)
[2017-09-16] MEDS: LEVOTHYROXINE SODIUM 125 MCG TAB PO SCH (21:55)
[2017-09-16] MEDS: VANCOMYCIN 1,000 MG/NS 250 ML IV SCH ×2 (21:55)
[2017-09-17 00:19] VITALS: BP 103/68; PULSE 87; RESP 20; TEMP 100.1; O2SAT 95
[2017-09-17] MEDS: ENOXAPARIN SODIUM 40 MG/0.4 ML SYRINGE SQ SCH (00:31)
[2017-09-17 04:19] VITALS: BP 91/67; PULSE 86; RESP 20; TEMP 101; O2SAT 94
[2017-09-17] MEDS: ACETAMINOPHEN 325 MG TAB PO PRN (04:26)
[2017-09-17] MEDS: CEFEPIME INJ 2,000 MG in SODIUM CHLORIDE 0.9% INJ 100 ML IV SCH ×2 (04:27→15:05)
[2017-09-17] MEDS: SODIUM CHLOR 0.9% 1000 ML INJ 1,000 ML IV SCH (04:38)
[2017-09-17 05:19] LABS: BASOPHIL % 0.6 % (0.0-2.0); EOSINOPHIL # 0.1 TH/MM3 (0-0.4); EOSINOPHIL % 4.1 % (0.0-4.0); HEMATOCRIT 33.2 % (35.0-46.0); HEMOGLOBIN 11.5 GM/DL (11.6-15.3); LYMPHOCYTE # 0.5 TH/MM3 (1.0-4.8); MEAN CELL VOLUME 95.6 FL (80.0-100.0); MEAN CORPUSCULAR HGB CONC 34.5 % (32.0-36.0); MEAN PLATELET VOLUME 8.2 FL (7.0-11.0); MONO % 12.6 % (0.0-8.0); MONOCYTE # 0.2 TH/MM3 (0-0.9); NEUT % 55.7 % (16.0-70.0); PLATELET COUNT 208 TH/MM3 (150-450); RED BLOOD COUNT 3.48 MIL/MM3 (4.00-5.30); RED CELL DISTRIBUTION WIDTH 12.5 % (11.6-17.2); WHITE BLOOD COUNT 1.8 TH/MM3 (4.0-11.0)
[2017-09-17 05:45] LABS: ALBUMIN 2.3 GM/DL (3.4-5.0); ALT (GPT) 108 U/L (10-53); AST (GOT) 84 U/L (15-37); BICARBONATE 27.3 MEQ/L (21.0-32.0); BLOOD UREA NITROGEN 13 MG/DL (7-18); CALCIUM 8.2 MG/DL (8.5-10.1); CHLORIDE 99 MEQ/L (98-107); CREATININE 1.04 MG/DL (0.50-1.00); GLOMERULAR FILTRATION RATE 53 ML/MIN (>89); GLUCOSE,RANDOM 85 MG/DL (74-106); SODIUM (NA) 136 MEQ/L (136-145)
[2017-09-17 05:46] LABS: ALKALINE PHOSPHATASE 250 U/L (45-117); TOTAL BILIRUBIN ADULT 0.7 MG/DL (0.2-1.0); TOTAL PROTEIN 5.3 GM/DL (6.4-8.2)
[2017-09-17 07:38] LABS: BANDS 20 % (0-6); BASOPHILS 1 % (0-2); LYMPHOCYTES 22 % (9-44); MONOCYTES 5 % (0-8); NEUTROPHIL # MANUAL DIFF 1.2 TH/MM3 (1.8-7.7); POLYS (SEG NEUTROPHILS) 46 % (16-70)
--- NOTE | 2017-09-17 08:03 | PD.ONC.PN ---
Subjective Subjective Remarks e commerce manager/onc progress note: patient resting in bed, febrile overnight with Tmax: 101.9 she states she is feeling better this morning mild nausea no BM in about 5 days, abd xray shown no obstruction or constipation Objective Data Date Time Temp Pulse Resp B/P (MAP) Pulse Ox O2 Delivery O2 Flow Rate FiO2 09/17/17 04:19 101.0 86 20 91/67 (75) 94 09/17/17 00:19 100.1 87 20 103/68 (80) 95 09/16/17 20:00 99.9 80 20 97/74 (82) 94 09/16/17 18:54 100.5 09/16/17 17:45 101.9 81 18 98/58 (71) 95 09/16/17 16:26 18 09/16/17 16:00 98.4 69 18 98/58 (71) 98 09/16/17 13:00 99.2 79 18 91/53 (66) 96 09/16/17 08:00 99.8 87 18 102/72 (82) 96 09/17/17 09/17/17 09/17/17 07:00 15:00 23:00 Intake Total 100 ml Balance 100 ml Result Diagram: 09/17/17 0403 09/17/17 0403 Laboratory Results Laboratory Tests Test 09/16/17 13:32 09/17/17 04:03 Blood Urea Nitrogen 12 MG/DL 13 MG/DL Creatinine 1.05 MG/DL 1.04 MG/DL Random Glucose 117 MG/DL 85 MG/DL Total Protein 5.5 GM/DL 5.3 GM/DL Albumin 2.5 GM/DL 2.3 GM/DL Calcium Level 8.3 MG/DL 8.2 MG/DL Alkaline Phosphatase 269 U/L 250 U/L Aspartate Amino Transf (AST/SGOT) 108 U/L 84 U/L Alanine Aminotransferase (ALT/SGPT) 121 U/L 108 U/L Total Bilirubin 0.6 MG/DL 0.7 MG/DL Sodium Level 133 MEQ/L 136 MEQ/L Potassium Level 3.5 MEQ/L 4.0 MEQ/L Chloride Level 95 MEQ/L 99 MEQ/L Carbon Dioxide Level 28.5 MEQ/L 27.3 MEQ/L Anion Gap 10 MEQ/L 10 MEQ/L Estimat Glomerular Filtration Rate 53 ML/MIN 53 ML/MIN White Blood Count 1.8 TH/MM3 Red Blood Count 3.48 MIL/MM3 Hemoglobin 11.5 GM/DL Hematocrit 33.2 % Mean Corpuscular Volume 95.6 FL Mean Corpuscular Hemoglobin 33.0 PG Mean Corpuscular Hemoglobin Concent 34.5 % Red Cell Distribution Width 12.5 % Platelet Count 208 TH/MM3 Mean Platelet Volume 8.2 FL Neutrophils (%) (Auto) 55.7 % Lymphocytes (%) (Auto) 27.0 % Monocytes (%) (Auto) 12.6 % Eosinophils (%) (Auto) 4.1 % Basophils (%) (Auto) 0.6 % Neutrophils # (Auto) 1.0 TH/MM3 Lymphocytes # (Auto) 0.5 TH/MM3 Monocytes # (Auto) 0.2 TH/MM3 Eosinophils # (Auto) 0.1 TH/MM3 Basophils # (Auto) 0.0 TH/MM3 CBC Comment AUTO DIFF Differential Total Cells Counted 100 Neutrophils % (Manual) 46 % Band Neutrophils % 20 % Lymphocytes % 22 % Monocytes % 5 % Eosinophils % 6 % Basophils % 1 % Neutrophils # (Manual) 1.2 TH/MM3 Differential Comment FINAL DIFF MANUAL Platelet Estimate NORMAL Platelet Morphology Comment NORMAL Red Cell Morphology Comment NORMAL Culture Results Microbiology Date/Time Source Procedure Growth Status 09/15/17 23:50 Blood Peripheral Aerobic Blood Culture - Preliminary NO GROWTH IN 1 DAY Resulted 09/15/17 23:50 Blood Peripheral Anaerobic Blood Culture - Preliminary NO GROWTH IN 1 DAY Resulted 09/15/17 23:45 Blood Peripheral Aerobic Blood Culture - Preliminary NO GROWTH IN 1 DAY Resulted 09/15/17 23:45 Blood Peripheral Anaerobic Blood Culture - Preliminary NO GROWTH IN 1 DAY Resulted Imaging Studies Last Impressions Abdomen X-Ray 09/16/17 0000 Signed Impressions: CONCLUSION: No acute abdominal abnormality is identified. Additionally, no significant stoo l is appreciated within the colon. Chest X-Ray 09/15/17 2308 Signed Impressions: CONCLUSION: The lungs are clear. Right IJ [id number] catheter in good position. Administered Medications Medications (Trade) Dose Ordered Sig/Elmo Route PRN Reason Start Time Stop Time Status Last Admin Dose Admin Sodium Chloride 1,000 ml @ 70 mls/hr [id number] IV 09/16/17 00:52 09/17/17 04:38 Sodium Chloride (NS Flush) 2 ml BID IV FLUSH 09/16/17 09:00 09/16/17 21:56 Acetaminophen (Tylenol) 650 mg Q4H PRN PO TEMP > 100.4 09/16/17 01:00 09/17/17 04:26 Enoxaparin Sodium (Lovenox Inj) 40 mg Q24H SQ 09/16/17 01:00 09/17/17 00:31 Senna/Docusate Sodium (Ngoc-Colace) 1 tab BID PO 09/16/17 09:00 09/16/17 21:55 Budesonide/ Formoterol Fumarate (Symbicort 160-4.5 Mcg Inh) 2 puff Q12HR INH 09/16/17 09:00 09/16/17 21:00 Calcium Carbonate (Oscal) 500 mg DAILY PO 09/16/17 09:00 09/16/17 10:52 Cholecalciferol (Vitamin D3) 5,000 units DAILY PO 09/16/17 09:00 09/16/17 10:57 Docusate Sodium (Colace) 100 mg BID PO 09/16/17 09:00 09/16/17 21:55 Estradiol (Estradiol) 2 mg DAILY PO 09/16/17 09:00 09/16/17 10:54 Lactobacillus Acidophilus (Lactinex) 1 tab DAILY PO 09/16/17 09:00 09/16/17 10:52 Levothyroxine Sodium (Synthroid) 125 mcg HS PO 09/16/17 21:00 09/16/17 21:55 Lorazepam (Ativan) 0.5 mg Q6H PRN PO ANXIETY 09/16/17 01:45 09/16/17 02:26 Polyethylene Glycol (Miralax) 17 gm DAILY PO 09/16/17 09:00 09/16/17 10:56 Propranolol HCl (Inderal La) 60 mg DAILY PO 09/16/17 09:00 09/16/17 09:00 Fluticasone Propionate (Flonase Pablo Spr) 1 spray BID EACH NARE 09/16/17 09:00 09/16/17 10:50 Cyanocobalamin (Vitamin B12) 2 mcg DAILY PO 09/16/17 09:00 09/16/17 10:53 Multivitamins (Theragran) 1 tab DAILY PO 09/16/17 09:00 09/16/17 10:51 Vancomycin HCl 1000 mg/Sodium Chloride 250 ml @ 250 mls/hr Q24H IV 09/16/17 20:00 09/16/17 21:55 Oxycodone HCl (Roxicodone) 5 mg Q4H PRN PO pain 3-5 09/16/17 10:15 09/17/17 00:31 Oxycodone HCl (Roxicodone) 10 mg Q4H PRN PO pain 6-10 09/16/17 10:15 09/16/17 19:48 Cefepime HCl 2000 mg/Sodium Chloride 100 ml @ 200 mls/hr Q8H IV 09/16/17 19:00 09/17/17 04:27 Objective Remarks GENERAL: Well-nourished, well-developed patient. SKIN: Warm and dry. HEAD: Normocephalic. EYES: No scleral icterus. No injection or drainage. NECK: Supple CARDIOVASCULAR: Regular rate and rhythm without murmurs. RESPIRATORY: Breath sounds equal bilaterally. No accessory muscle use. GASTROINTESTINAL: Abdomen soft, non-tender, nondistended. + BS X 4 EXTREMITIES: No cyanosis, or edema. MUSCULOSKELETAL: Adequate muscle tone. NEUROLOGICAL: No obvious focal deficit. Awake, alert, and oriented x3. PSYCHIATRIC: Appropriate mood and affect; insight and judgment normal. Assessment/Plan Problem List: (1) Fever and neutropenia ICD Codes: D70.9 - Neutropenia, unspecified; R50.81 - Fever presenting with conditions classified elsewhere Status: Acute Plan: blood cultures negative X 1 day CXR normal abd Xray: normal ANC decreased to 1000, will start Neulasta with subsequent IV chemo cont ABX per med team, Thanks to med team for assisting in care of Mrs. Farias PO meds PRN for constipation OK to use Emla cream to port site before access Attending Statement Discussed with Dr. Paul. Mayte Franco Sep 17, 2017 08:03
[2017-09-17 08:07] VITALS: BP 91/58; PULSE 92; RESP 18; TEMP 97.9; O2SAT 93
[2017-09-17] MEDS: BUDESONIDE-FORMOTEROL 160/4.5 MCG INHALER INH SCH ×2 (09:00→21:27)
[2017-09-17] MEDS: PROPRANOLOL HCL LA 60 MG CAP PO SCH (09:00)
[2017-09-17] MEDS: CHOLECALCIFEROL (VIT D3) 5000 UNIT CAP PO SCH (10:27)
[2017-09-17] MEDS: DOCUSATE SODIUM 100 MG CAP PO SCH ×2 (10:28→21:27)
[2017-09-17] MEDS: CYANOCOBALAMIN 1,000 MCG TAB PO SCH (10:28)
[2017-09-17] MEDS: DOCUSATE SODIUM 50 MG/SENNA 8.6 MG TAB PO SCH ×2 (10:28→21:27)
[2017-09-17] MEDS: CALCIUM CARBONATE 1.25 GM (CA 500 MG) TAB PO SCH (10:28)
[2017-09-17] MEDS: LACTOBACILLUS ACIDOPHILUS TAB PO SCH (10:28)
[2017-09-17] MEDS: ESTRADIOL 1 MG TAB PO SCH (10:28)
[2017-09-17] MEDS: SODIUM CHLORIDE 0.9% FLUSH 10 ML FLUSH IV FLUSH SCH ×2 (10:29→21:00)
[2017-09-17] MEDS: MULTIVITAMIN TAB PO SCH (10:29)
[2017-09-17] MEDS: FLUTICASONE PROPIONATE 50 MCG/ACT 16 GM NASAL SPRAY EACH NARE SCH ×2 (10:29→21:00)
[2017-09-17] MEDS: POLYETHYLENE GLYCOL 17 GM PKG PO SCH (10:29)
[2017-09-17] MEDS: LORazepam 0.5 MG TAB PO PRN (10:38)
--- NOTE | 2017-09-17 13:13 | HHI.PR ---
Subjective Remarks The patient says she has been vomiting all day. She says she try to eat a bite of a pancake but could not. She says that she has not had a bowel movement in 5 days. She would be willing to try an enema. She says she woke up this morning completely sweaty. Discussed with nursing. Objective Vitals Vital Signs Date Time Temp Pulse Resp B/P (MAP) Pulse Ox O2 Delivery O2 Flow Rate FiO2 09/17/17 08:07 97.9 92 18 91/58 (69) 93 09/17/17 04:19 101.0 86 20 91/67 (75) 94 09/17/17 00:19 100.1 87 20 103/68 (80) 95 09/16/17 20:00 99.9 80 20 97/74 (82) 94 09/16/17 18:54 100.5 09/16/17 17:45 101.9 81 18 98/58 (71) 95 09/16/17 16:26 18 09/16/17 16:00 98.4 69 18 98/58 (71) 98 I/O 09/16/17 09/16/17 09/16/17 09/17/17 09/17/17 09/17/17 07:00 15:00 23:00 07:00 15:00 23:00 Intake Total 100 ml 250 ml 100 ml Balance 100 ml 250 ml 100 ml Intake IV Total 100 ml 250 ml 100 ml # Voids 1 4 Result Diagram: 09/17/17 0403 09/17/17 0403 Imaging Last Impressions Abdomen X-Ray 09/16/17 0000 Signed Impressions: CONCLUSION: No acute abdominal abnormality is identified. Additionally, no significant stoo l is appreciated within the colon. Chest X-Ray 09/15/17 2308 Signed Impressions: CONCLUSION: The lungs are clear. Right IJ Zqqccq-w-Gyty catheter in good position. Objective Remarks GENERAL: This is a well-nourished, well-developed patient, in no apparent distress. SKIN: No rashes, ecchymoses or lesions. Cool and dry. HEAD: Atraumatic. Normocephalic. EYES: Pupils equal round and reactive. Extraocular motions intact. CARDIOVASCULAR: Regular rate and rhythm without murmurs, gallops, or rubs. RESPIRATORY: Clear to auscultation. Breath sounds equal bilaterally. No wheezes , rales, or rhonchi. GASTROINTESTINAL: Abdomen soft, nondistended. Mildly tender centrally. No guarding. Decreased bowel sounds. MUSCULOSKELETAL: Extremities without clubbing, cyanosis, or edema. NEUROLOGICAL: Awake and alert. Normal speech. A/P Assessment and Plan 62 y/o female with a history of ovarian cancer, asthma, and hypothyroidism presented to the ED with complaints of a fever of 101 at home. 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 - continue vancomycin and cefepime IV. - Neutropenic precautions. - follow-up with chief electrician-oncology. - Neulasta with chemotherapy. Transaminitis Possibly secondary to chemo treatment. - Trend liver enzymes. Hyponatremia S/t decreased PO intake. Improving. - IVF for hydration. - Trend electrolytes. Constipation KUB unremarkable. - continue bowel regimen. - mag citrate x 1. DVT prophylaxis: Brian Monet DO Sep 17, 2017 13:13
[2017-09-17] MEDS ORDERED: MINERAL OIL ENEMA 118 ML BTL RECTAL ONE (13:15)
[2017-09-17] MEDS ORDERED: MAGNESIUM CITRATE SOLN 300 ML BTL PO ONE (13:15)
[2017-09-17 13:36] VITALS: BP 100/67; PULSE 68; RESP 18; TEMP 97.8; O2SAT 98
[2017-09-17] MEDS ORDERED: PROCHLORPERAZINE INJ 10 MG/2 ML VIAL IV PUSH ONE (14:00)
[2017-09-17] MEDS: DEXT 5%-NACL 0.9% 1000 ML INJ 1,000 ML IV SCH ×2 (18:07→23:15)
[2017-09-17 18:10] VITALS: BP 93/69; PULSE 75; RESP 18; TEMP 98; O2SAT 98
[2017-09-17 20:00] VITALS: BP 111/70; PULSE 78; RESP 20; TEMP 98.7; O2SAT 94
[2017-09-17] MEDS: LEVOTHYROXINE SODIUM 125 MCG TAB PO SCH (21:27)
[2017-09-17] MEDS: VANCOMYCIN 1,000 MG/NS 250 ML IV SCH ×2 (21:27)
[2017-09-18] VITALS: BP 121/51; PULSE 96; RESP 20; TEMP 101.6; O2SAT 96
[2017-09-18] MEDS: ACETAMINOPHEN 325 MG TAB PO PRN (00:03)
[2017-09-18] MEDS: ENOXAPARIN SODIUM 40 MG/0.4 ML SYRINGE SQ SCH (00:06)
[2017-09-18] MEDS: CEFEPIME INJ 2,000 MG in SODIUM CHLORIDE 0.9% INJ 100 ML IV SCH ×3 (04:00→14:40)
[2017-09-18 04:05] VITALS: BP 94/54; PULSE 78; RESP 18; TEMP 98.9; O2SAT 94
[2017-09-18 05:01] LABS: HEMATOCRIT 29.7 % (35.0-46.0); HEMOGLOBIN 10.3 GM/DL (11.6-15.3); MEAN CELL VOLUME 94.9 FL (80.0-100.0); MEAN CORPUSCULAR HEMOGLOBIN 32.9 PG (27.0-34.0); MEAN CORPUSCULAR HGB CONC 34.7 % (32.0-36.0); MEAN PLATELET VOLUME 7.5 FL (7.0-11.0); PLATELET COUNT 220 TH/MM3 (150-450); RED BLOOD COUNT 3.13 MIL/MM3 (4.00-5.30); RED CELL DISTRIBUTION WIDTH 12.6 % (11.6-17.2); WHITE BLOOD COUNT 1.5 TH/MM3 (4.0-11.0)
[2017-09-18 05:32] LABS: BICARBONATE 24.6 MEQ/L (21.0-32.0); CALCIUM 7.5 MG/DL (8.5-10.1); CREATININE 0.83 MG/DL (0.50-1.00); MAGNESIUM 1.9 MG/DL (1.5-2.5)
[2017-09-18 08:46] VITALS: BP 90/55; PULSE 83; RESP 18; TEMP 99; O2SAT 94
[2017-09-18] MEDS: PROPRANOLOL HCL LA 60 MG CAP PO SCH (09:00)
[2017-09-18] MEDS: SODIUM CHLORIDE 0.9% FLUSH 10 ML FLUSH IV FLUSH SCH ×2 (09:00→19:58)
[2017-09-18] MEDS: LACTOBACILLUS ACIDOPHILUS TAB PO SCH (09:04)
[2017-09-18] MEDS: FLUTICASONE PROPIONATE 50 MCG/ACT 16 GM NASAL SPRAY EACH NARE SCH ×2 (09:04→19:59)
[2017-09-18] MEDS: BUDESONIDE-FORMOTEROL 160/4.5 MCG INHALER INH SCH ×2 (09:04→19:59)
[2017-09-18] MEDS: DOCUSATE SODIUM 50 MG/SENNA 8.6 MG TAB PO SCH ×2 (09:05→19:58)
[2017-09-18] MEDS: ESTRADIOL 1 MG TAB PO SCH (09:05)
[2017-09-18] MEDS: CALCIUM CARBONATE 1.25 GM (CA 500 MG) TAB PO SCH (09:05)
[2017-09-18] MEDS: CHOLECALCIFEROL (VIT D3) 5000 UNIT CAP PO SCH (09:05)
[2017-09-18] MEDS: MULTIVITAMIN TAB PO SCH (09:05)
[2017-09-18] MEDS: DOCUSATE SODIUM 100 MG CAP PO SCH ×2 (09:05→19:58)
[2017-09-18] MEDS: POLYETHYLENE GLYCOL 17 GM PKG PO SCH (09:06)
--- NOTE | 2017-09-18 10:02 | PD.ONC.PN ---
Subjective Subjective Remarks Tmax 101.6 overnight. Patient had small bowel movement this AM but still feels constipated. she is otherwise without symptoms. she denies cough, sore throat or pain with urination. denies rash. Objective Data Date Time Temp Pulse Resp B/P (MAP) Pulse Ox O2 Delivery O2 Flow Rate FiO2 09/18/17 08:46 99.0 83 18 90/55 (67) 94 09/18/17 04:05 98.9 78 18 94/54 (67) 94 09/18/17 00:00 101.6 96 20 121/51 (74) 96 09/17/17 20:00 98.7 78 20 111/70 (84) 94 09/17/17 18:10 98.0 75 18 93/69 (77) 98 09/17/17 13:36 97.8 68 18 100/67 (78) 98 09/18/17 09/18/17 09/18/17 07:00 15:00 23:00 Intake Total 480 ml Output Total 500 ml Balance -20 ml Result Diagram: 09/18/17 0415 09/18/17 0415 Laboratory Results Laboratory Tests Test 09/18/17 04:15 White Blood Count 1.5 TH/MM3 Red Blood Count 3.13 MIL/MM3 Hemoglobin 10.3 GM/DL Hematocrit 29.7 % Mean Corpuscular Volume 94.9 FL Mean Corpuscular Hemoglobin 32.9 PG Mean Corpuscular Hemoglobin Concent 34.7 % Red Cell Distribution Width 12.6 % Platelet Count 220 TH/MM3 Mean Platelet Volume 7.5 FL Blood Urea Nitrogen 11 MG/DL Creatinine 0.83 MG/DL Random Glucose 123 MG/DL Calcium Level 7.5 MG/DL Magnesium Level 1.9 MG/DL Sodium Level 140 MEQ/L Potassium Level 3.3 MEQ/L Chloride Level 106 MEQ/L Carbon Dioxide Level 24.6 MEQ/L Anion Gap 9 MEQ/L Estimat Glomerular Filtration Rate 69 ML/MIN Culture Results Microbiology Date/Time Source Procedure Growth Status 09/15/17 23:50 Blood Peripheral Aerobic Blood Culture - Preliminary NO GROWTH IN 2 DAYS Resulted 09/15/17 23:50 Blood Peripheral Anaerobic Blood Culture - Preliminary NO GROWTH IN 2 DAYS Resulted 09/15/17 23:45 Blood Peripheral Aerobic Blood Culture - Preliminary NO GROWTH IN 2 DAYS Resulted 09/15/17 23:45 Blood Peripheral Anaerobic Blood Culture - Preliminary NO GROWTH IN 2 DAYS Resulted Administered Medications Medications (Trade) Dose Ordered Sig/Elmo Route PRN Reason Start Time Stop Time Status Last Admin Dose Admin Sodium Chloride (NS Flush) 2 ml BID IV FLUSH 09/16/17 09:00 09/17/17 10:29 Acetaminophen (Tylenol) 650 mg Q4H PRN PO TEMP > 100.4 09/16/17 01:00 09/18/17 00:03 Ondansetron HCl (Zofran Odt) 4 mg Q6H PRN PO NAUSEA OR VOMITING 09/16/17 01:00 09/17/17 10:39 Enoxaparin Sodium (Lovenox Inj) 40 mg Q24H SQ 09/16/17 01:00 09/17/17 00:31 Senna/Docusate Sodium (Ngoc-Colace) 1 tab BID PO 09/16/17 09:00 09/18/17 09:05 Lactulose (Lactulose Liq) 30 ml DAILY PRN PO SEVERE CONSITIPATION 09/16/17 01:00 09/18/17 09:06 Budesonide/ Formoterol Fumarate (Symbicort 160-4.5 Mcg Inh) 2 puff Q12HR INH 09/16/17 09:00 09/18/17 09:04 Calcium Carbonate (Oscal) 500 mg DAILY PO 09/16/17 09:00 09/18/17 09:05 Cholecalciferol (Vitamin D3) 5,000 units DAILY PO 09/16/17 09:00 09/18/17 09:05 Docusate Sodium (Colace) 100 mg BID PO 09/16/17 09:00 09/18/17 09:05 Estradiol (Estradiol) 2 mg DAILY PO 09/16/17 09:00 09/18/17 09:05 Lactobacillus Acidophilus (Lactinex) 1 tab DAILY PO 09/16/17 09:00 09/18/17 09:04 Levothyroxine Sodium (Synthroid) 125 mcg HS PO 09/16/17 21:00 09/17/17 21:27 Lorazepam (Ativan) 0.5 mg Q6H PRN PO ANXIETY 09/16/17 01:45 09/17/17 10:38 Polyethylene Glycol (Miralax) 17 gm DAILY PO 09/16/17 09:00 09/18/17 09:06 Propranolol HCl (Inderal La) 60 mg DAILY PO 09/16/17 09:00 09/17/17 09:00 Fluticasone Propionate (Flonase Pablo Spr) 1 spray BID EACH NARE 09/16/17 09:00 09/18/17 09:04 Cyanocobalamin (Vitamin B12) 2 mcg DAILY PO 09/16/17 09:00 09/17/17 10:28 Multivitamins (Theragran) 1 tab DAILY PO 09/16/17 09:00 09/18/17 09:05 Vancomycin HCl 1000 mg/Sodium Chloride 250 ml @ 250 mls/hr Q24H IV 09/16/17 20:00 09/17/17 21:27 Oxycodone HCl (Roxicodone) 5 mg Q4H PRN PO pain 3-5 09/16/17 10:15 09/17/17 00:31 Oxycodone HCl (Roxicodone) 10 mg Q4H PRN PO pain 6-10 09/16/17 10:15 09/16/17 19:48 Cefepime HCl 2000 mg/Sodium Chloride 100 ml @ 200 mls/hr Q12H IV 09/17/17 15:00 09/18/17 04:00 Dextrose/Sodium Chloride 1,000 ml @ 100 mls/hr Q10H IV 09/17/17 13:15 09/17/17 23:15 Objective Remarks GENERAL: Middle aged female, sitting up in bed in [facility]. SKIN: Warm and dry. HEAD: Normocephalic. EYES: No injection or drainage. NECK: Supple, trachea midline. CARDIOVASCULAR: Regular rate and rhythm RESPIRATORY: Breath sounds equal bilaterally. No accessory muscle use. GASTROINTESTINAL: Abdomen soft. tender mass palpated in pelvis. otherwise nontender EXTREMITIES: No cyanosis NEUROLOGICAL: awake and alert. normal speech. moving all extremities. Assessment/Plan Problem List: (1) Fever and neutropenia ICD Codes: D70.9 - Neutropenia, unspecified; R50.81 - Fever presenting with conditions classified elsewhere Status: Acute Plan: 09/18: patient continuing to spike fevers despite antibiotics. will obtain repeat blood cultures and consult infectious disease. WBC continuing to drop, patient has not reached her stefani yet. --Post-chemotherapy day 10, status post Taxol and carboplatin chemotherapy, line 1, cycle 1. --BC no growth. --CXR: WNL --U/A: no infection (2) Constipation ICD Codes: K59.00 - Constipation, unspecified Plan: --PRN laxatives Assessment 62y/o female with Stage IC, grade 3, ovarian cancer admitted with neutropenic fever. s/p exploratory laparotomy, resection of large pelvic mass and staging (prior admission) Attending Statement The exam, history, and the medical decision-making described in the above note were completed with the assistance of the mid-level provider. I reviewed and agree with the findings presented. I attest that I had a [id number]-rh-fiyw encounter with the patient on the same day, and personally performed and documented my assessment and findings in the medical record. Patient seen, chart reviewed and discussed with KAREN. Patient is complaining of nausea after getting antibiotic. She also had one episode of vomiting. She is complaining of acid reflux. We will start her on IV Reglan as scheduled plus Phenergan p.o. 12.5 mg every 6 hours plus Protonix 40 mg IV. She does not have any more fever and chills. She is happy with that. Continue the antibiotics Discussed with patient's RN Ingrid Zuñiga Sep 18, 2017 10:02 Howard Aguilera MD Sep 18, 2017 20:55
[2017-09-18 11:02] LABS: DIRECT BILIRUBIN ADULT 0.3 MG/DL (0.0-0.2)
[2017-09-18 11:04] LABS: INDIRECT BILIRUBIN 0.3 MG/DL (0.0-0.8); TOTAL BILIRUBIN ADULT 0.6 MG/DL (0.2-1.0); TOTAL PROTEIN 4.9 GM/DL (6.4-8.2)
[2017-09-18] MEDS ORDERED: METOCLOPRAMIDE HCL 10 MG/2 ML VIAL IV PUSH PRN (11:15)
[2017-09-18 11:37] VITALS: BP 96/62; PULSE 74; RESP 18; TEMP 98.7; O2SAT 93
[2017-09-18 14:03] LABS: BANDS 7 % (0-6); LYMPHOCYTES 19 % (9-44); MONOCYTES 18 % (0-8); NEUTROPHIL # MANUAL DIFF 0.9 TH/MM3 (1.8-7.7); POLYS (SEG NEUTROPHILS) 52 % (16-70)
[2017-09-18] MEDS: CYANOCOBALAMIN 1,000 MCG TAB PO SCH (14:39)
--- NOTE | 2017-09-18 15:03 | HHI.PR ---
Subjective Remarks The patient said that her nausea was a little better controlled with the antiemetics. She said that she was able to have a small bowel movement. She said last night she had visible shakes while she had a fever. Discussed with nursing. Objective Vitals Vital Signs Date Time Temp Pulse Resp B/P (MAP) Pulse Ox O2 Delivery O2 Flow Rate FiO2 09/18/17 11:37 98.7 74 18 96/62 (73) 93 09/18/17 08:46 99.0 83 18 90/55 (67) 94 09/18/17 04:05 98.9 78 18 94/54 (67) 94 09/18/17 00:00 101.6 96 20 121/51 (74) 96 09/17/17 20:00 98.7 78 20 111/70 (84) 94 09/17/17 18:10 98.0 75 18 93/69 (77) 98 I/O 09/17/17 09/17/17 09/17/17 09/18/17 09/18/17 09/18/17 07:00 15:00 23:00 07:00 15:00 23:00 Intake Total 100 ml 250 ml 480 ml Output Total 500 ml Balance 100 ml 250 ml -20 ml Intake Oral 480 ml IV Total 100 ml 250 ml Output Urine Total 500 ml Result Diagram: 09/18/17 0415 09/18/17 0415 Imaging Last Impressions Abdomen X-Ray 09/16/17 0000 Signed Impressions: CONCLUSION: No acute abdominal abnormality is identified. Additionally, no significant stoo l is appreciated within the colon. Chest X-Ray 09/15/17 2898 Signed Impressions: CONCLUSION: The lungs are clear. Right IJ [id number] catheter in good position. Objective Remarks GENERAL: This is a well-nourished, well-developed patient, in no apparent distress. SKIN: No rashes, ecchymoses or lesions. Cool and dry. HEAD: Atraumatic. Normocephalic. EYES: Pupils equal round and reactive. Extraocular motions intact. CARDIOVASCULAR: Regular rate and rhythm without murmurs, gallops, or rubs. RESPIRATORY: Clear to auscultation. Breath sounds equal bilaterally. No wheezes , rales, or rhonchi. GASTROINTESTINAL: Abdomen soft, nondistended. Mildly tender centrally. No guarding. Decreased bowel sounds. MUSCULOSKELETAL: Extremities without clubbing, cyanosis, or edema. NEUROLOGICAL: Awake and alert. Normal speech. A/P Assessment and Plan 62 y/o female with a history of ovarian cancer, asthma, and hypothyroidism presented to the ED with complaints of a fever of 101 at home. 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 Continues to spike fevers. - continue vancomycin and cefepime IV. - Neutropenic precautions. - follow-up with senior bookkeeper-oncology. - Neulasta with chemotherapy. - ID consult pending. - follow culture data. Transaminitis Possibly secondary to chemo treatment. - Trend liver enzymes. Improving. Hyponatremia S/t decreased PO intake. - IVF for hydration. - Trend electrolytes. - IV KCl. Constipation KUB unremarkable. Improved. - continue bowel regimen. DVT prophylaxis: Brian Monet DO Sep 18, 2017 15:03
[2017-09-18 16:05] VITALS: BP 97/65; PULSE 73; RESP 18; TEMP 98.4; O2SAT 97
[2017-09-18] MEDS: DEXT 5%-NACL 0.9% 1000 ML INJ 1,000 ML IV SCH ×2 (16:10→16:19)
[2017-09-18] MEDS: POTASSIUM CHLOR 20 MEQ PREMIX 100 ML IV SCH ×2 (16:11→18:15)
[2017-09-18] MEDS ORDERED: PROMETHAZINE INJ 25 MG/ML VIAL IV-CENTRAL ONE (19:00)
[2017-09-18] MEDS ORDERED: PHARMACY ORDERED LAB ONE (19:45)
[2017-09-18] MEDS: LEVOTHYROXINE SODIUM 125 MCG TAB PO SCH (19:58)
[2017-09-18 20:00] VITALS: BP 118/76; PULSE 73; RESP 16; TEMP 98.9; O2SAT 97
[2017-09-18] MEDS: VANCOMYCIN 1,000 MG/NS 250 ML IV SCH ×2 (20:00)
[2017-09-18] MEDS: PROMETHAZINE HCL 25 MG TAB PO SCH (21:00)
--- NOTE | 2017-09-18 21:16 | PD.ID.CON ---
History of Present Illness Service ID Consult Requested By FRANCISCO Diaz Reason for Consult Evaluation and MMent of Neutropenic fever. 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 Patient underwent her 1st cycle of Taxol and Carboplatin 1 week prior to admission. Patient presents to the hospital with fevers, aches, and body aches. She developed fevers which lead her to the ED visit. Patient had a neutropenic sepsis workup. CXR with no infiltrates. Severe neutropenia. She was started on empiric broad spectrum antibiotics Cefepime IV and Vanco IV. Initially her fevers subsided and now returned. She denies any rash. She reports nausea and attributes it to the antibiotics. Blood cultures drawn on admission no growth so far at 2 plus days. No skin lesions. No diarrhea. Labs on admission, white count 2.1 with an absolute neutrophil count of 1.3, H and H 13.1 and 38.8, platelets 197. Electrolytes showed a BUN and creatinine of 12 and 1.05. Her transaminases are elevated. Serum albumin low at 2.5 with an AST of 116 and ALT of 130. Alkaline phosphatase 272. Bilirubin is normal at 0.8. ID consulted for Mment of Neutropenic fever. Review of Systems ROS Limitations: Poor Historian Constitutional: COMPLAINS OF: Fatigue, Fever, Chills, Change in appetite, DENIES: Diaphoretic episodes, Weight gain, Weight loss, Dizziness, Night Sweats Endocrine: DENIES: Abnorml menstrual pattern, Heat/cold intolerance, Polydipsia , Polyuria, Polyphagia Eyes: DENIES: Blurred vision, Diplopia, Eye inflammation, Eye pain, Vision loss , Photosensitivity, Double Vision Ears, nose, mouth, throat: DENIES: Tinnitus, Hearing loss, Vertigo, Nasal discharge, Oral lesions, Throat pain, Hoarseness, Ear Pain, Running Nose, Epistaxis, Sinus Pain, Toothache, Odynophagia Respiratory: DENIES: Apneas, Cough, Snoring, Wheezing, Hemoptysis, Sputum production, Shortness of breath Cardiovascular: DENIES: Chest pain, Palpitations, Syncope, Dyspnea on Exertion , PND, Lower Extremity Edema, Orthopnea, Claudication Gastrointestinal: COMPLAINS OF: Nausea, DENIES: Abdominal pain, Black stools, Bloody stools, Constipation, Diarrhea, Vomiting, Difficulty Swallowing, Anorexia Genitourinary: DENIES: Abnormal vaginal bleeding, Dysmenorrhea, Dyspareunia, Sexual dysfunction, Urinary frequency, Urinary incontinence, Urgency, Hematuria , Dysuria, Nocturia, Vaginal discharge Musculoskeletal: DENIES: Joint pain, Muscle aches, Stiffness, Joint Swelling, Back pain, Neck pain Integumentary: DENIES: Abnormal pigmentation, Pruritus, Rash, Nail changes, Breast masses, Breast skin changes, Nipple discharge Hematologic/lymphatic: DENIES: Bruising, Lymphadenopathy Immunologic/allergic: DENIES: Eczema, Urticaria Neurologic: DENIES: Abnormal gait, Headache, Localized weakness, Paresthesias, Seizures, Speech Problems, Tremor, Poor Balance Except as stated in HPI: all other systems reviewed are Neg Past Family Social History Allergies: Coded Allergies: mold (Verified Allergy, Severe, Shortness of Breath, 09/15/17) BLACK MOLD CAUSES PULM EDEMA adhesive (Verified Adverse Reaction, Severe, Irritation, 09/15/17) PT CAN TOLERATE PAPER TAPE codeine (Verified Adverse Reaction, Severe, Itching, 09/15/17) Past Medical History Ovarian cancer, stage IC, grade 3; asthma, migraine headaches, hypothyroidism, elevated lipids. Past Surgical History Includes the ovarian cancer surgery, previous hysterectomy. right bunionectomy. Shoulder surgery. Reported Medications Reported Meds & Active Scripts Active Reported Oxycodone (Oxycodone HCl) 5 Mg Cap 5 Mg PO Q4H PRN Lorazepam 0.5 Mg Tab 0.5 Mg PO Q6H PRN Tylenol (Acetaminophen) 325 Mg Tab 325 Mg PO Q4H PRN Tums (Calcium Carbonate (Antacid)) 500 Mg Chew 500 Mg CHEW Dulcolax Stool Softener (Docusate Sodium) 100 Mg Cap 100 Mg PO BID Miralax Powder (Polyethylene Glycol 3350 Powder) 17 Gm Powd 17 Gm PO DAILY Mix and dissolve one measuring cap-ful (17 grams) in water or juice. Probiotic (Lactobacillus Acidophilus) 10 Billion Cell Cap 1 Cap PO DAILY Vitamin B12 (Cyanocobalamin (Vitamin B-12)) 2,500 Mcg Tab.chew 2 Tab DAILY Vitamin D3 (Cholecalciferol) 5,000 Unit Cap 5,000 Units PO DAILY Calcium Oyster Shell (Calcium Carbonate) 1,250 Mg Tab 1,200 Mg PO DAILY 1,250 mg calcium carbonate (500 mg elemental calcium) Nasacort Allergy 24Hr Nasal (Triamcinolone Nasal) 55 Mcg Spr 1 [place] EACH NARE BID One Daily For Women 50+A (Multiple Vitamins W/ Minerals) 400 Mcg-120 Mg Tab 1 Tab PO DAILY Wal-Dryl Allergy (Diphenhydramine HCl) 25 Mg Cap 1 Caplet PO DAILY Temazepam 15 Mg Cap 15 Mg PO HS PRN Symbicort Inh (Budesonide/Formoterol Fumarate) 160-4.5 Mcg/Act Aero 2 Puff INH Q12HR Furosemide 40 Mg Tab 40 Mg PO DAILY PRN TAKES WHEN LEG SWELLING OCCURS Estradiol 2 Mg Tab 2 Mg PO DAILY Propranolol ER 24 HR (Propranolol HCl) 60 Mg Cap 60 Mg PO DAILY Levothyroxine (Levothyroxine Sodium) 125 Mcg Tab 125 Mcg PO HS Active Ordered Medications Current Medications Medications (Trade) Dose Ordered Sig/Elmo Route Start Time Stop Time Status Last Admin (NS Flush) 2 ml UNSCH PRN IV FLUSH 09/16/17 01:00 (NS Flush) 2 ml BID IV FLUSH 09/16/17 09:00 09/18/17 19:58 (Tylenol) 650 mg Q4H PRN PO 09/16/17 01:00 09/18/17 00:03 (Lovenox Inj) 40 mg Q24H SQ 09/16/17 01:00 09/17/17 00:31 (Narcan Inj) 0.4 mg UNSCH PRN IV PUSH 09/16/17 01:00 (Ngoc-Colace) 1 tab BID PO 09/16/17 09:00 09/18/17 19:58 (Milk Of Magnesia Liq) 30 ml Q12H PRN PO 09/16/17 01:00 (Senokot) 17.2 mg Q12H PRN PO 09/16/17 01:00 (Dulcolax Supp) 10 mg DAILY PRN RECTAL 09/16/17 01:00 (Lactulose Liq) 30 ml DAILY PRN PO 09/16/17 01:00 09/18/17 09:06 (Symbicort 160-4.5 Mcg Inh) 2 puff Q12HR INH 09/16/17 09:00 09/18/17 19:59 (Oscal) 500 mg DAILY PO 09/16/17 09:00 09/18/17 09:05 (Vitamin D3) 5,000 units DAILY PO 09/16/17 09:00 09/18/17 09:05 (Colace) 100 mg BID PO 09/16/17 09:00 09/18/17 19:58 (Estradiol) 2 mg DAILY PO 09/16/17 09:00 09/18/17 09:05 (Lactinex) 1 tab DAILY PO 09/16/17 09:00 09/18/17 09:04 (Synthroid) 125 mcg HS PO 09/16/17 21:00 09/18/17 19:58 (Ativan) 0.5 mg Q6H PRN PO 09/16/17 01:45 09/17/17 10:38 (Miralax) 17 gm DAILY PO 09/16/17 09:00 09/18/17 09:06 (Inderal La) 60 mg DAILY PO 09/16/17 09:00 09/17/17 09:00 (Restoril) 15 mg HS PRN PO 09/16/17 01:45 (Flonase Pablo Spr) 1 spray BID EACH NARE 09/16/17 09:00 09/18/17 09:04 (Theragran) 1 tab DAILY PO 09/16/17 09:00 09/18/17 09:05 (Roxicodone) 5 mg Q4H PRN PO 09/16/17 10:15 09/17/17 00:31 (Roxicodone) 10 mg Q4H PRN PO 09/16/17 10:15 09/16/17 19:48 (Citroma Liq) 300 ml DAILY PRN PO 09/16/17 20:45 Cefepime HCl 2000 mg/Sodium Chloride 100 ml @ 200 mls/hr Q12H IV 09/17/17 15:00 09/18/17 14:40 Dextrose/Sodium Chloride 1,000 ml @ 100 mls/hr Q10H IV 09/17/17 13:15 09/18/17 16:10 (Reglan Inj) 5 mg Q8H PRN IV PUSH 09/18/17 11:15 09/18/17 11:44 (Vitamin B12) 2,000 mcg DAILY PO 09/18/17 14:00 09/18/17 14:39 (Protonix) 40 mg DAILY PO 09/18/17 21:00 09/18/17 21:33 (Reglan Inj) 10 mg Q8HR IV PUSH 09/18/17 22:00 09/18/17 21:33 (Phenergan) 12.5 mg Q6H PO 09/18/17 21:00 Family History reviewed and HI Social History Denies alcohol, smoking or illicit drugs. Lives with Physical Exam Vital Signs Vital Signs Date Time Temp Pulse Resp B/P (MAP) Pulse Ox O2 Delivery O2 Flow Rate FiO2 09/18/17 16:05 98.4 73 18 97/65 (76) 97 09/18/17 11:37 98.7 74 18 96/62 (73) 93 09/18/17 08:46 99.0 83 18 90/55 (67) 94 09/18/17 04:05 98.9 78 18 94/54 (67) 94 09/18/17 00:00 101.6 96 20 121/51 (74) 96 Physical Exam GENERAL: This is a well-nourished, well-developed patient, in no apparent distress. SKIN: No rashes, ecchymoses or lesions. Cool and dry. HEAD: Atraumatic. Normocephalic. No temporal or scalp tenderness. EYES: Pupils equal round and reactive. Extraocular motions intact. No scleral icterus. No injection or drainage. ENT: Nose without bleeding, purulent drainage or septal hematoma. Throat without erythema, tonsillar hypertrophy or exudate. Uvula midline. Airway patent. NECK: Trachea midline. No JVD or lymphadenopathy. Supple, nontender, no meningeal signs. CARDIOVASCULAR: Regular rate and rhythm without murmurs, gallops, or rubs. RESPIRATORY: Clear to auscultation. Breath sounds equal bilaterally. No wheezes , rales, or rhonchi. GASTROINTESTINAL: Abdomen soft, non-tender, nondistended. No hepato-splenomegaly , or palpable masses. No guarding. MUSCULOSKELETAL: Extremities without clubbing, cyanosis, or edema. No joint tenderness, effusion, or edema noted. No calf tenderness. Negative Homans sign bilaterally. NEUROLOGICAL: Awake and alert. Cranial nerves II through XII intact. Motor and sensory grossly within normal limits. Five out of 5 muscle strength in all muscle groups. Normal speech. Psych cooperative Laboratory Laboratory Tests Test 09/18/17 04:15 09/18/17 19:50 White Blood Count 1.5 Red Blood Count 3.13 Hemoglobin 10.3 Hematocrit 29.7 Mean Corpuscular Volume 94.9 Mean Corpuscular Hemoglobin 32.9 Mean Corpuscular Hemoglobin Concent 34.7 Red Cell Distribution Width 12.6 Platelet Count 220 Mean Platelet Volume 7.5 Differential Total Cells Counted 100 Neutrophils % (Manual) 52 Band Neutrophils % 7 Lymphocytes % 19 Monocytes % 18 Eosinophils % 4 Neutrophils # (Manual) 0.9 Differential Comment FINAL DIFF MANUAL Platelet Estimate NORMAL Platelet Morphology Comment NORMAL Blood Urea Nitrogen 11 Creatinine 0.83 Random Glucose 123 Calcium Level 7.5 Magnesium Level 1.9 Sodium Level 140 Potassium Level 3.3 Chloride Level 106 Carbon Dioxide Level 24.6 Anion Gap 9 Estimat Glomerular Filtration Rate 69 Total Bilirubin 0.6 Direct Bilirubin 0.3 Indirect Bilirubin 0.3 Aspartate Amino Transf (AST/SGOT) 64 Alanine Aminotransferase (ALT/SGPT) 97 Alkaline Phosphatase 265 Total Protein 4.9 Albumin 2.0 Vancomycin Level Trough 8.5 Date/Time Source Procedure Growth Status 09/18/17 10:15 Blood Peripheral Aerobic Blood Culture Pending Received 09/18/17 10:15 Blood Peripheral Anaerobic Blood Culture Pending Received Result Diagram: 09/18/17 0415 09/18/17 0415 Imaging Last Impressions Chest X-Ray 09/18/17 0000 Signed Impressions: CONCLUSION: [id number] in superior vena cava. Mild basilar atelectasis. No significant e ffusion. No pneumothorax. Abdomen X-Ray 09/16/17 0000 Signed Impressions: CONCLUSION: No acute abdominal abnormality is identified. Additionally, no significant stoo l is appreciated within the colon. Assessment and Plan Assessment and Plan Neutropenic fever Ovarian cancer Immune compromised s/[ chemorx Recs Continue Cefepime IV DC Vanco IV If ANC improves in am consider stopping all antibiotics. Consider Neupogen dw Hematology Follow cultures Follow clinically dw pt and RN Angela Pop MD Sep 18, 2017 21:16
[2017-09-18] MEDS: METOCLOPRAMIDE HCL 10 MG/2 ML VIAL IV PUSH SCH (21:33)
[2017-09-18] MEDS: PANTOPRAZOLE SOD 40 MG DELAYED RELEASE TAB PO SCH (21:33)
--- NOTE | 2017-09-18 21:42 | RADRPT ---
EXAM DATE: 09/18/2017 9:39 PM EDT AGE/SEX: 62 years / Female INDICATIONS: Shortness of breath. Evaluate for pneumonia. CLINICAL DATA: This is the patient's initial encounter. Patient reports that signs and symptoms have been present for 2 days and indicates a pain score of 0/10. MEDICAL/SURGICAL HISTORY: None. None. COMPARISON: No prior exams available for comparison. FINDINGS: [id number]-[id number] in superior vena cava. Mild basilar atelectasis or scarring. Heart size normal. No dens e consolidation. No pneumothorax. CONCLUSION: [id number] in superior vena cava. Mild basilar atelectasis. No significant effusion. No pneumothor ax. Electronically signed by: Nikita Mendez MD 09/18/2017 9:40 PM EDT
[2017-09-19 00:09] VITALS: BP 105/70; PULSE 66; RESP 16; TEMP 98.2; O2SAT 95
[2017-09-19] MEDS: ENOXAPARIN SODIUM 40 MG/0.4 ML SYRINGE SQ SCH (00:14)
[2017-09-19] MEDS: PROMETHAZINE HCL 25 MG TAB PO SCH ×4 (03:28→21:28)
[2017-09-19] MEDS: CEFEPIME INJ 2,000 MG in SODIUM CHLORIDE 0.9% INJ 100 ML IV SCH (03:28)
[2017-09-19 04:00] VITALS: BP 95/62; PULSE 78; RESP 16; TEMP 98.2; O2SAT 96
[2017-09-19] MEDS: METOCLOPRAMIDE HCL 10 MG/2 ML VIAL IV PUSH SCH ×3 (05:03→21:27)
[2017-09-19] MEDS: DEXT 5%-NACL 0.9% 1000 ML INJ 1,000 ML IV SCH (05:04)
[2017-09-19 05:27] LABS: AUTOMATED NEUTROPHIL # 0.8 TH/MM3 (1.8-7.7); BASOPHIL % 0.9 % (0.0-2.0); EOSINOPHIL # 0.1 TH/MM3 (0-0.4); EOSINOPHIL % 5.9 % (0.0-4.0); HEMATOCRIT 31.5 % (35.0-46.0); HEMOGLOBIN 10.9 GM/DL (11.6-15.3); LYMPH % 33.1 % (9.0-44.0); LYMPHOCYTE # 0.7 TH/MM3 (1.0-4.8); MEAN CELL VOLUME 95.6 FL (80.0-100.0); MEAN CORPUSCULAR HEMOGLOBIN 33.1 PG (27.0-34.0); MEAN CORPUSCULAR HGB CONC 34.6 % (32.0-36.0); MEAN PLATELET VOLUME 7.3 FL (7.0-11.0); MONO % 20.2 % (0.0-8.0); MONOCYTE # 0.4 TH/MM3 (0-0.9); NEUT % 39.9 % (16.0-70.0); PLATELET COUNT 242 TH/MM3 (150-450); RED CELL DISTRIBUTION WIDTH 12.6 % (11.6-17.2)
[2017-09-19 05:48] LABS: AST (GOT) 48 U/L (15-37); BICARBONATE 23.5 MEQ/L (21.0-32.0); BLOOD UREA NITROGEN 8 MG/DL (7-18); CALCIUM 7.9 MG/DL (8.5-10.1); CHLORIDE 109 MEQ/L (98-107); CREATININE 0.78 MG/DL (0.50-1.00); GLOMERULAR FILTRATION RATE 74 ML/MIN (>89); GLUCOSE,RANDOM 113 MG/DL (74-106); SODIUM (NA) 141 MEQ/L (136-145)
[2017-09-19 05:51] LABS: ALKALINE PHOSPHATASE 286 U/L (45-117); ALT (GPT) 81 U/L (10-53); TOTAL BILIRUBIN ADULT 0.4 MG/DL (0.2-1.0); TOTAL PROTEIN 4.9 GM/DL (6.4-8.2)
[2017-09-19 08:24] LABS: BANDS 15 % (0-6); LYMPHOCYTES 30 % (9-44); MONOCYTES 22 % (0-8); NEUTROPHIL # MANUAL DIFF 0.9 TH/MM3 (1.8-7.7); POLYS (SEG NEUTROPHILS) 29 % (16-70)
[2017-09-19 08:28] VITALS: BP 106/69; PULSE 103; RESP 18; TEMP 99.4; O2SAT 96
[2017-09-19] MEDS: CYANOCOBALAMIN 1,000 MCG TAB PO SCH (08:30)
[2017-09-19] MEDS: CHOLECALCIFEROL (VIT D3) 5000 UNIT CAP PO SCH (08:30)
[2017-09-19] MEDS: PROPRANOLOL HCL LA 60 MG CAP PO SCH (08:31)
[2017-09-19] MEDS: POLYETHYLENE GLYCOL 17 GM PKG PO SCH (08:31)
[2017-09-19] MEDS: CALCIUM CARBONATE 1.25 GM (CA 500 MG) TAB PO SCH (08:31)
[2017-09-19] MEDS: DOCUSATE SODIUM 50 MG/SENNA 8.6 MG TAB PO SCH ×2 (08:31→21:28)
[2017-09-19] MEDS: ESTRADIOL 1 MG TAB PO SCH (08:31)
[2017-09-19] MEDS: MULTIVITAMIN TAB PO SCH (08:31)
[2017-09-19] MEDS: DOCUSATE SODIUM 100 MG CAP PO SCH ×2 (08:31→21:28)
[2017-09-19] MEDS: PANTOPRAZOLE SOD 40 MG DELAYED RELEASE TAB PO SCH (08:31)
[2017-09-19] MEDS: LACTOBACILLUS ACIDOPHILUS TAB PO SCH (08:31)
[2017-09-19] MEDS: BUDESONIDE-FORMOTEROL 160/4.5 MCG INHALER INH SCH ×2 (08:35→21:29)
[2017-09-19] MEDS: SODIUM CHLORIDE 0.9% FLUSH 10 ML FLUSH IV FLUSH SCH ×2 (08:35→21:29)
[2017-09-19] MEDS: FLUTICASONE PROPIONATE 50 MCG/ACT 16 GM NASAL SPRAY EACH NARE SCH ×2 (08:35→21:00)
[2017-09-19] MEDS ORDERED: VANCOMYCIN INJ 750 MG in SODIUM CHLOR 0.9% 250 ML INJ 250 ML IV SCH (10:00)
--- NOTE | 2017-09-19 10:00 | PD.ONC.PN ---
Subjective Subjective Remarks Afebrile overnight. nausea much improved with scheduled reglan and phenergan. ate breakfast this AM without difficulty. wants to go home. Objective Data Date Time Temp Pulse Resp B/P (MAP) Pulse Ox O2 Delivery O2 Flow Rate FiO2 09/19/17 08:28 99.4 103 18 106/69 (81) 96 09/19/17 04:00 98.2 78 16 95/62 (73) 96 09/19/17 00:09 98.2 66 16 105/70 (82) 95 09/18/17 20:00 98.9 73 16 118/76 (90) 97 09/18/17 16:05 98.4 73 18 97/65 (76) 97 09/18/17 11:37 98.7 74 18 96/62 (73) 93 09/19/17 09/19/17 09/19/17 07:00 15:00 23:00 Intake Total 1340 ml Output Total 500 ml Balance 840 ml Result Diagram: 09/19/17 0500 09/19/17 0500 Laboratory Results Laboratory Tests Test 09/18/17 19:50 09/19/17 05:00 Vancomycin Level Trough 8.5 MCG/ML White Blood Count 2.0 TH/MM3 Red Blood Count 3.30 MIL/MM3 Hemoglobin 10.9 GM/DL Hematocrit 31.5 % Mean Corpuscular Volume 95.6 FL Mean Corpuscular Hemoglobin 33.1 PG Mean Corpuscular Hemoglobin Concent 34.6 % Red Cell Distribution Width 12.6 % Platelet Count 242 TH/MM3 Mean Platelet Volume 7.3 FL Neutrophils (%) (Auto) 39.9 % Lymphocytes (%) (Auto) 33.1 % Monocytes (%) (Auto) 20.2 % Eosinophils (%) (Auto) 5.9 % Basophils (%) (Auto) 0.9 % Neutrophils # (Auto) 0.8 TH/MM3 Lymphocytes # (Auto) 0.7 TH/MM3 Monocytes # (Auto) 0.4 TH/MM3 Eosinophils # (Auto) 0.1 TH/MM3 Basophils # (Auto) 0.0 TH/MM3 CBC Comment AUTO DIFF Differential Total Cells Counted 100 Neutrophils % (Manual) 29 % Band Neutrophils % 15 % Lymphocytes % 30 % Monocytes % 22 % Eosinophils % 4 % Neutrophils # (Manual) 0.9 TH/MM3 Differential Comment FINAL DIFF MANUAL Platelet Estimate NORMAL Platelet Morphology Comment NORMAL Red Cell Morphology Comment NORMAL Blood Urea Nitrogen 8 MG/DL Creatinine 0.78 MG/DL Random Glucose 113 MG/DL Total Protein 4.9 GM/DL Albumin 2.0 GM/DL Calcium Level 7.9 MG/DL Alkaline Phosphatase 286 U/L Aspartate Amino Transf (AST/SGOT) 48 U/L Alanine Aminotransferase (ALT/SGPT) 81 U/L Total Bilirubin 0.4 MG/DL Sodium Level 141 MEQ/L Potassium Level 3.7 MEQ/L Chloride Level 109 MEQ/L Carbon Dioxide Level 23.5 MEQ/L Anion Gap 9 MEQ/L Estimat Glomerular Filtration Rate 74 ML/MIN Culture Results Microbiology Date/Time Source Procedure Growth Status 09/18/17 10:15 Blood Peripheral Aerobic Blood Culture Pending Received 09/18/17 10:15 Blood Peripheral Anaerobic Blood Culture Pending Received 09/18/17 10:15 Blood Line Aerobic Blood Culture Pending Received 09/18/17 10:15 Blood Line Anaerobic Blood Culture Pending Received Administered Medications Medications (Trade) Dose Ordered Sig/Elmo Route PRN Reason Start Time Stop Time Status Last Admin Dose Admin Sodium Chloride (NS Flush) 2 ml BID IV FLUSH 09/16/17 09:00 09/19/17 08:35 Acetaminophen (Tylenol) 650 mg Q4H PRN PO TEMP > 100.4 09/16/17 01:00 09/18/17 00:03 Enoxaparin Sodium (Lovenox Inj) 40 mg Q24H SQ 09/16/17 01:00 09/19/17 00:14 Senna/Docusate Sodium (Ngoc-Colace) 1 tab BID PO 09/16/17 09:00 09/19/17 08:31 Lactulose (Lactulose Liq) 30 ml DAILY PRN PO SEVERE CONSITIPATION 09/16/17 01:00 09/18/17 09:06 Budesonide/ Formoterol Fumarate (Symbicort 160-4.5 Mcg Inh) 2 puff Q12HR INH 09/16/17 09:00 09/19/17 08:35 Calcium Carbonate (Oscal) 500 mg DAILY PO 09/16/17 09:00 09/19/17 08:31 Cholecalciferol (Vitamin D3) 5,000 units DAILY PO 09/16/17 09:00 09/19/17 08:30 Docusate Sodium (Colace) 100 mg BID PO 09/16/17 09:00 09/19/17 08:31 Estradiol (Estradiol) 2 mg DAILY PO 09/16/17 09:00 09/19/17 08:31 Lactobacillus Acidophilus (Lactinex) 1 tab DAILY PO 09/16/17 09:00 09/19/17 08:31 Levothyroxine Sodium (Synthroid) 125 mcg HS PO 09/16/17 21:00 09/18/17 19:58 Lorazepam (Ativan) 0.5 mg Q6H PRN PO ANXIETY 09/16/17 01:45 09/17/17 10:38 Polyethylene Glycol (Miralax) 17 gm DAILY PO 09/16/17 09:00 09/19/17 08:31 Propranolol HCl (Inderal La) 60 mg DAILY PO 09/16/17 09:00 09/19/17 08:31 Fluticasone Propionate (Flonase Pablo Spr) 1 spray BID EACH NARE 09/16/17 09:00 09/19/17 08:35 Multivitamins (Theragran) 1 tab DAILY PO 09/16/17 09:00 09/19/17 08:31 Oxycodone HCl (Roxicodone) 5 mg Q4H PRN PO pain 3-5 09/16/17 10:15 09/17/17 00:31 Oxycodone HCl (Roxicodone) 10 mg Q4H PRN PO pain 6-10 09/16/17 10:15 09/19/17 00:13 Cefepime HCl 2000 mg/Sodium Chloride 100 ml @ 200 mls/hr Q12H IV 09/17/17 15:00 09/19/17 03:28 Dextrose/Sodium Chloride 1,000 ml @ 100 mls/hr Q10H IV 09/17/17 13:15 09/19/17 05:04 Metoclopramide HCl (Reglan Inj) 5 mg Q8H PRN IV PUSH nausea 09/18/17 11:15 09/18/17 11:44 Cyanocobalamin (Vitamin B12) 2,000 mcg DAILY PO 09/18/17 14:00 09/19/17 08:30 Pantoprazole Sodium (Protonix) 40 mg DAILY PO 09/18/17 21:00 09/19/17 08:31 Metoclopramide HCl (Reglan Inj) 10 mg Q8HR IV PUSH 09/18/17 22:00 09/19/17 05:03 Promethazine HCl (Phenergan) 12.5 mg Q6H PO 09/18/17 21:00 09/19/17 08:31 Objective Remarks GENERAL: Middle aged female, sitting up in bed in nad. SKIN: Warm and dry. HEAD: Normocephalic. MOUTH: pharynx with mild injection. EYES: No injection or drainage. NECK: Supple, trachea midline. CARDIOVASCULAR: Regular rate and rhythm RESPIRATORY: Breath sounds equal bilaterally. No accessory muscle use. GASTROINTESTINAL: Abdomen soft, non-tender, nondistended. +fullness in pelvis EXTREMITIES: No cyanosis MUSCULOSKELETAL: Adequate muscle tone. NEUROLOGICAL: No obvious focal deficit. Awake, alert, and oriented x3. Assessment/Plan Problem List: (1) Fever and neutropenia ICD Codes: D70.9 - Neutropenia, unspecified; R50.81 - Fever presenting with conditions classified elsewhere Status: Acute Plan: 09/19: has remained afebrile for 24 hours. await blood cultures today. ok to switch to oral antibiotics. start Neupogen. 09/18: patient continuing to spike fevers despite antibiotics. will obtain repeat blood cultures and consult infectious disease. WBC continuing to drop, patient has not reached her stefani yet. --Post-chemotherapy day 10, status post Taxol and carboplatin chemotherapy, line 1, cycle 1. --BC no growth. --CXR: WNL --U/A: no infection (2) Constipation ICD Codes: K59.00 - Constipation, unspecified Plan: --PRN laxatives Assessment 62y/o female with Stage IC, grade 3, ovarian cancer admitted with neutropenic fever. s/p exploratory laparotomy, resection of large pelvic mass and staging (prior admission) Attending Statement The exam, history, and the medical decision-making described in the above note were completed with the assistance of the mid-level provider. I reviewed and agree with the findings presented. I attest that I had a [id number] encounter with the patient on the same day, and personally performed and documented my assessment and findings in the medical record. Patient feels much better. She does not have any more nausea and vomiting. She does not have any more fevers. IV antibiotics have been switched over to oral Levaquin. Patient has neutropenia and start Neupogen. Patient feels much better and she thinks that she can go home soon. Dr. Paul to follow in the morning Case discussed with Ingrid Curry Ms. Sep 19, 2017 10:00 Howard Aguilera MD Sep 19, 2017 19:39
[2017-09-19 11:11] VITALS: BP 92/60; PULSE 75; RESP 18; TEMP 98.8; O2SAT 94
--- NOTE | 2017-09-19 13:56 | HHI.PR ---
Subjective Remarks The patient really wants to go home. She says she is able to eat more and has not been throwing up. She says that the Lovenox injections hurt her quite a bit and she would like to stop that. Discussed with infectious disease. Objective Vitals Vital Signs Date Time Temp Pulse Resp B/P (MAP) Pulse Ox O2 Delivery O2 Flow Rate FiO2 09/19/17 11:11 98.8 75 18 92/60 (71) 94 09/19/17 08:28 99.4 103 18 106/69 (81) 96 09/19/17 04:00 98.2 78 16 95/62 (73) 96 09/19/17 00:09 98.2 66 16 105/70 (82) 95 09/18/17 20:00 98.9 73 16 118/76 (90) 97 09/18/17 16:05 98.4 73 18 97/65 (76) 97 I/O 09/18/17 09/18/17 09/18/17 09/19/17 09/19/17 09/19/17 07:00 15:00 23:00 07:00 15:00 23:00 Intake Total 480 ml 830 ml 1340 ml Output Total 500 ml 500 ml Balance -20 ml 830 ml 840 ml Intake Oral 480 ml 480 ml 240 ml IV Total 350 ml 1100 ml Output Urine Total 500 ml 500 ml # Voids 6 # Bowel Movements 3 Result Diagram: 09/19/17 0500 09/19/17 0500 Imaging Last Impressions Chest X-Ray 09/18/17 0000 Signed Impressions: CONCLUSION: [id number] in superior vena cava. Mild basilar atelectasis. No significant e ffusion. No pneumothorax. Abdomen X-Ray 09/16/17 0000 Signed Impressions: CONCLUSION: No acute abdominal abnormality is identified. Additionally, no significant stoo l is appreciated within the colon. Objective Remarks GENERAL: This is a well-nourished, well-developed patient, in no apparent distress. SKIN: No rashes, ecchymoses or lesions. Cool and dry. HEAD: Atraumatic. Normocephalic. EYES: Pupils equal round and reactive. Extraocular motions intact. CARDIOVASCULAR: Regular rate and rhythm without murmurs, gallops, or rubs. RESPIRATORY: Clear to auscultation. Breath sounds equal bilaterally. No wheezes , rales, or rhonchi. GASTROINTESTINAL: Abdomen soft, nondistended. Mildly tender centrally. No guarding. Decreased bowel sounds. MUSCULOSKELETAL: Extremities without clubbing, cyanosis, or edema. NEUROLOGICAL: Awake and alert. Normal speech. A/P Assessment and Plan 62 y/o female with a history of ovarian cancer, asthma, and hypothyroidism presented to the ED with complaints of a fever of 101 at home. Neutropenic fever s/p chemotherapy FOOD SAFETY SPECIALIST oncology consult appreciated. Continues to spike fevers. ID consult appreciated. - continue vancomycin IV per ID. - Neutropenic precautions. - follow-up with product designer-oncology. - Neulasta with chemotherapy. - follow culture data. Transaminitis Possibly secondary to chemo treatment. - Trend liver enzymes. Improving. Hyponatremia S/t decreased PO intake. - S/p IVF for hydration. - Trend electrolytes. - PO KCl. Constipation KUB unremarkable. Improved. - continue bowel regimen. Hypotension On propranolol. - hold propranolol. DVT prophylaxis: Lovenox Discharge Planning D/c when cleared by oncology and ID Brian Webb DO Sep 19, 2017 13:56
[2017-09-19] MEDS ORDERED: POTASSIUM CHLORIDE 20 MEQ CONTROLLED RELEASE TAB PO ONE (14:00)
[2017-09-19] MEDS: FILGRASTIM 300 MCG/ML VIAL SQ SCH (14:17)
--- NOTE | 2017-09-19 14:17 | HHI.IDPN ---
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 Patient underwent her 1st cycle of Taxol and Carboplatin 1 week prior to admission. Patient presents to the hospital with fevers, aches, and body aches. She developed fevers which lead her to the ED visit. Patient had a neutropenic sepsis workup. CXR with no infiltrates. Severe neutropenia. She was started on empiric broad spectrum antibiotics Cefepime IV and Vanco IV. Initially her fevers subsided and now returned. She denies any rash. She reports nausea and attributes it to the antibiotics. Blood cultures drawn on admission no growth so far at 2 plus days. No skin lesions. No diarrhea. Labs on admission, white count 2.1 with an absolute neutrophil count of 1.3, H and H 13.1 and 38.8, platelets 197. Electrolytes showed a BUN and creatinine of 12 and 1.05. Her transaminases are elevated. Serum albumin low at 2.5 with an AST of 116 and ALT of 130. Alkaline phosphatase 272. Bilirubin is normal at 0.8. ID consulted for Mment of Neutropenic fever. Overnight events reviewed No fevers No rash No diarrhea Antibiotics Cefepime IV Lines Lines ok Past Medical History Ovarian cancer, stage IC, grade 3; asthma, migraine headaches, hypothyroidism, elevated lipids. Includes the ovarian cancer surgery, previous hysterectomy. right bunionectomy. Shoulder surgery. Allergies: Coded Allergies: mold (Verified Allergy, Severe, Shortness of Breath, 09/15/17) BLACK MOLD CAUSES PULM EDEMA adhesive (Verified Adverse Reaction, Severe, Irritation, 09/15/17) PT CAN TOLERATE PAPER TAPE codeine (Verified Adverse Reaction, Severe, Itching, 09/15/17) Objective . Vital Signs Date Time Temp Pulse Resp B/P (MAP) Pulse Ox O2 Delivery O2 Flow Rate FiO2 09/19/17 11:11 98.8 75 18 92/60 (71) 94 09/19/17 08:28 99.4 103 18 106/69 (81) 96 09/19/17 04:00 98.2 78 16 95/62 (73) 96 09/19/17 00:09 98.2 66 16 105/70 (82) 95 09/18/17 20:00 98.9 73 16 118/76 (90) 97 09/18/17 16:05 98.4 73 18 97/65 (76) 97 . Laboratory Tests Test 09/18/17 04:15 09/19/17 05:00 White Blood Count 1.5 TH/MM3 2.0 TH/MM3 Red Blood Count 3.13 MIL/MM3 3.30 MIL/MM3 Hemoglobin 10.3 GM/DL 10.9 GM/DL Hematocrit 29.7 % 31.5 % Mean Corpuscular Volume 94.9 FL 95.6 FL Mean Corpuscular Hemoglobin 32.9 PG 33.1 PG Mean Corpuscular Hemoglobin Concent 34.7 % 34.6 % Red Cell Distribution Width 12.6 % 12.6 % Platelet Count 220 TH/MM3 242 TH/MM3 Mean Platelet Volume 7.5 FL 7.3 FL Differential Total Cells Counted 100 100 Neutrophils % (Manual) 52 % 29 % Band Neutrophils % 7 % 15 % Lymphocytes % 19 % 30 % Monocytes % 18 % 22 % Eosinophils % 4 % 4 % Neutrophils # (Manual) 0.9 TH/MM3 0.9 TH/MM3 Differential Comment FINAL DIFF MANUAL FINAL DIFF MANUAL Platelet Estimate NORMAL NORMAL Platelet Morphology Comment NORMAL NORMAL Neutrophils (%) (Auto) 39.9 % Lymphocytes (%) (Auto) 33.1 % Monocytes (%) (Auto) 20.2 % Eosinophils (%) (Auto) 5.9 % Basophils (%) (Auto) 0.9 % Neutrophils # (Auto) 0.8 TH/MM3 Lymphocytes # (Auto) 0.7 TH/MM3 Monocytes # (Auto) 0.4 TH/MM3 Eosinophils # (Auto) 0.1 TH/MM3 Basophils # (Auto) 0.0 TH/MM3 CBC Comment AUTO DIFF Red Cell Morphology Comment NORMAL Laboratory Tests Test 09/18/17 04:15 09/19/17 05:00 Blood Urea Nitrogen 11 MG/DL 8 MG/DL Creatinine 0.83 MG/DL 0.78 MG/DL Random Glucose 123 MG/DL 113 MG/DL Calcium Level 7.5 MG/DL 7.9 MG/DL Magnesium Level 1.9 MG/DL Sodium Level 140 MEQ/L 141 MEQ/L Potassium Level 3.3 MEQ/L 3.7 MEQ/L Chloride Level 106 MEQ/L 109 MEQ/L Carbon Dioxide Level 24.6 MEQ/L 23.5 MEQ/L Anion Gap 9 MEQ/L 9 MEQ/L Estimat Glomerular Filtration Rate 69 ML/MIN 74 ML/MIN Total Bilirubin 0.6 MG/DL 0.4 MG/DL Direct Bilirubin 0.3 MG/DL Indirect Bilirubin 0.3 MG/DL Aspartate Amino Transf (AST/SGOT) 64 U/L 48 U/L Alanine Aminotransferase (ALT/SGPT) 97 U/L 81 U/L Alkaline Phosphatase 265 U/L 286 U/L Total Protein 4.9 GM/DL 4.9 GM/DL Albumin 2.0 GM/DL 2.0 GM/DL Microbiology Date/Time Source Procedure Growth Status 09/18/17 10:15 Blood Peripheral Aerobic Blood Culture - Preliminary NO GROWTH IN 1 DAY Resulted 09/18/17 10:15 Blood Peripheral Anaerobic Blood Culture - Preliminary NO GROWTH IN 1 DAY Resulted 09/18/17 10:15 Blood Line Aerobic Blood Culture - Preliminary NO GROWTH IN 1 DAY Resulted 09/18/17 10:15 Blood Line Anaerobic Blood Culture - Preliminary NO GROWTH IN 1 DAY Resulted Imaging Last Impressions Chest X-Ray 09/18/17 0000 Signed Impressions: CONCLUSION: [id number] in superior vena cava. Mild basilar atelectasis. No significant e ffusion. No pneumothorax. Abdomen X-Ray 09/16/17 0000 Signed Impressions: CONCLUSION: No acute abdominal abnormality is identified. Additionally, no significant stoo l is appreciated within the colon. Physical Exam GENERAL: This is a well-nourished, well-developed patient, in no apparent distress. SKIN: No rashes, ecchymoses or lesions. Cool and dry. HEAD: Atraumatic. Normocephalic. No temporal or scalp tenderness. EYES: Pupils equal round and reactive. Extraocular motions intact. No scleral icterus. No injection or drainage. ENT: Nose without bleeding, purulent drainage or septal hematoma. Throat without erythema, tonsillar hypertrophy or exudate. Uvula midline. Airway patent. NECK: Trachea midline. No JVD or lymphadenopathy. Supple, nontender, no meningeal signs. CARDIOVASCULAR: Regular rate and rhythm without murmurs, gallops, or rubs. RESPIRATORY: Clear to auscultation. Breath sounds equal bilaterally. No wheezes , rales, or rhonchi. GASTROINTESTINAL: Abdomen soft, non-tender, nondistended. No hepato-splenomegaly , or palpable masses. No guarding. MUSCULOSKELETAL: Extremities without clubbing, cyanosis, or edema. No joint tenderness, effusion, or edema noted. No calf tenderness. Negative Homans sign bilaterally. NEUROLOGICAL: Awake and alert. Cranial nerves II through XII intact. Motor and sensory grossly within normal limits. Five out of 5 muscle strength in all muscle groups. Normal speech. Psych cooperative Assessment & Plan Remarks Neutropenic fever Ovarian cancer Immune compromised s/[ chemorx Recs DC Cefepime IV. Start levaquin oral (suspect Vanco and Cefepime contributing to BM suppression) Saqib Zuñiga re: Neupogen If ANC improves in am consider stopping all antibiotics. Follow cultures Follow clinically saqib pt and RN Angela Villanueva MD Sep 19, 2017 14:17
[2017-09-19 15:34] VITALS: BP 99/66; PULSE 75; RESP 18; TEMP 98.6; O2SAT 96
[2017-09-19] MEDS: LEVOFLOXACIN 500 MG TAB PO SCH (15:37)
[2017-09-19 20:00] VITALS: BP 111/72; PULSE 84; RESP 18; TEMP 99.8; O2SAT 97
[2017-09-19] MEDS: LEVOTHYROXINE SODIUM 125 MCG TAB PO SCH (21:28)
[2017-09-20] VITALS: BP 111/70; PULSE 83; RESP 16; TEMP 99.1; O2SAT 93
[2017-09-20] MEDS: ENOXAPARIN SODIUM 40 MG/0.4 ML SYRINGE SQ SCH
[2017-09-20 04:10] VITALS: BP 100/65; PULSE 83; RESP 16; TEMP 98; O2SAT 92
[2017-09-20] MEDS: PROMETHAZINE HCL 25 MG TAB PO SCH ×2 (04:19→08:32)
[2017-09-20 05:03] LABS: AUTOMATED NEUTROPHIL # 4.6 TH/MM3 (1.8-7.7); BASOPHIL % 0.6 % (0.0-2.0); EOSINOPHIL # 0.1 TH/MM3 (0-0.4); HEMATOCRIT 31.8 % (35.0-46.0); HEMOGLOBIN 10.9 GM/DL (11.6-15.3); LYMPH % 16.8 % (9.0-44.0); MEAN CELL VOLUME 95.1 FL (80.0-100.0); MEAN CORPUSCULAR HEMOGLOBIN 32.7 PG (27.0-34.0); MEAN CORPUSCULAR HGB CONC 34.3 % (32.0-36.0); MEAN PLATELET VOLUME 7.7 FL (7.0-11.0); MONO % 7.6 % (0.0-8.0); MONOCYTE # 0.5 TH/MM3 (0-0.9); PLATELET COUNT 249 TH/MM3 (150-450); RED BLOOD COUNT 3.34 MIL/MM3 (4.00-5.30); RED CELL DISTRIBUTION WIDTH 12.9 % (11.6-17.2); WHITE BLOOD COUNT 6.3 TH/MM3 (4.0-11.0)
[2017-09-20 05:25] LABS: BICARBONATE 22.9 MEQ/L (21.0-32.0); CALCIUM 8.2 MG/DL (8.5-10.1); CREATININE 0.76 MG/DL (0.50-1.00)
[2017-09-20] MEDS: METOCLOPRAMIDE HCL 10 MG/2 ML VIAL IV PUSH SCH ×2 (05:47→13:40)
--- NOTE | 2017-09-20 07:14 | PD.ONC.PN ---
Subjective Subjective Remarks waterfront director/onc progress note patient resting in bed denies and fevers, nausea or vomiting states feels much better, anxious to be discharged home will receive Neulasta with subsequent chemotherapy Ok to discharge home per waterfront director/onc once OK per ID Objective Data Date Time Temp Pulse Resp B/P (MAP) Pulse Ox O2 Delivery O2 Flow Rate FiO2 09/20/17 04:10 98.0 83 16 100/65 (77) 92 09/20/17 00:00 99.1 83 16 111/70 (84) 93 09/19/17 20:00 99.8 84 18 111/72 (85) 97 09/19/17 15:34 98.6 75 18 99/66 (77) 96 09/19/17 11:11 98.8 75 18 92/60 (71) 94 09/19/17 08:28 99.4 103 18 106/69 (81) 96 09/20/17 09/20/17 09/20/17 07:00 15:00 23:00 Intake Total 240 ml Output Total 500 ml Balance -260 ml Result Diagram: 09/20/17 0405 09/20/17 0405 Laboratory Results Laboratory Tests Test 09/20/17 04:05 White Blood Count 6.3 TH/MM3 Red Blood Count 3.34 MIL/MM3 Hemoglobin 10.9 GM/DL Hematocrit 31.8 % Mean Corpuscular Volume 95.1 FL Mean Corpuscular Hemoglobin 32.7 PG Mean Corpuscular Hemoglobin Concent 34.3 % Red Cell Distribution Width 12.9 % Platelet Count 249 TH/MM3 Mean Platelet Volume 7.7 FL Neutrophils (%) (Auto) 73.0 % Lymphocytes (%) (Auto) 16.8 % Monocytes (%) (Auto) 7.6 % Eosinophils (%) (Auto) 2.0 % Basophils (%) (Auto) 0.6 % Neutrophils # (Auto) 4.6 TH/MM3 Lymphocytes # (Auto) 1.0 TH/MM3 Monocytes # (Auto) 0.5 TH/MM3 Eosinophils # (Auto) 0.1 TH/MM3 Basophils # (Auto) 0.0 TH/MM3 CBC Comment AUTO DIFF Blood Urea Nitrogen 9 MG/DL Creatinine 0.76 MG/DL Random Glucose 84 MG/DL Calcium Level 8.2 MG/DL Sodium Level 140 MEQ/L Potassium Level 3.5 MEQ/L Chloride Level 107 MEQ/L Carbon Dioxide Level 22.9 MEQ/L Anion Gap 10 MEQ/L Estimat Glomerular Filtration Rate 77 ML/MIN Culture Results Microbiology Date/Time Source Procedure Growth Status 09/18/17 10:15 Blood Peripheral Aerobic Blood Culture - Preliminary NO GROWTH IN 1 DAY Resulted 09/18/17 10:15 Blood Peripheral Anaerobic Blood Culture - Preliminary NO GROWTH IN 1 DAY Resulted 09/18/17 10:15 Blood Line Aerobic Blood Culture - Preliminary NO GROWTH IN 1 DAY Resulted 09/18/17 10:15 Blood Line Anaerobic Blood Culture - Preliminary NO GROWTH IN 1 DAY Resulted Imaging Studies Last Impressions Chest X-Ray 09/18/17 0000 Signed Impressions: CONCLUSION: [id number] in superior vena cava. Mild basilar atelectasis. No significant e ffusion. No pneumothorax. Abdomen X-Ray 09/16/17 0000 Signed Impressions: CONCLUSION: No acute abdominal abnormality is identified. Additionally, no significant stoo l is appreciated within the colon. Administered Medications Medications (Trade) Dose Ordered Sig/Elom Route PRN Reason Start Time Stop Time Status Last Admin Dose Admin Sodium Chloride (NS Flush) 2 ml BID IV FLUSH 09/16/17 09:00 09/19/17 21:29 Acetaminophen (Tylenol) 650 mg Q4H PRN PO TEMP > 100.4 09/16/17 01:00 09/18/17 00:03 Enoxaparin Sodium (Lovenox Inj) 40 mg Q24H SQ 09/16/17 01:00 09/20/17 00:00 Senna/Docusate Sodium (Ngoc-Colace) 1 tab BID PO 09/16/17 09:00 09/19/17 21:28 Lactulose (Lactulose Liq) 30 ml DAILY PRN PO SEVERE CONSITIPATION 09/16/17 01:00 09/18/17 09:06 Budesonide/ Formoterol Fumarate (Symbicort 160-4.5 Mcg Inh) 2 puff Q12HR INH 09/16/17 09:00 09/19/17 21:29 Calcium Carbonate (Oscal) 500 mg DAILY PO 09/16/17 09:00 09/19/17 08:31 Cholecalciferol (Vitamin D3) 5,000 units DAILY PO 09/16/17 09:00 09/19/17 08:30 Docusate Sodium (Colace) 100 mg BID PO 09/16/17 09:00 09/19/17 21:28 Estradiol (Estradiol) 2 mg DAILY PO 09/16/17 09:00 09/19/17 08:31 Lactobacillus Acidophilus (Lactinex) 1 tab DAILY PO 09/16/17 09:00 09/19/17 08:31 Levothyroxine Sodium (Synthroid) 125 mcg HS PO 09/16/17 21:00 09/19/17 21:28 Lorazepam (Ativan) 0.5 mg Q6H PRN PO ANXIETY 09/16/17 01:45 09/17/17 10:38 Polyethylene Glycol (Miralax) 17 gm DAILY PO 09/16/17 09:00 09/19/17 08:31 Propranolol HCl (Inderal La) 60 mg DAILY PO 09/16/17 09:00 Future Hold 09/19/17 08:31 Temazepam (Restoril) 15 mg HS PRN PO INSOMNIA 09/16/17 01:45 09/20/17 00:50 Fluticasone Propionate (Flonase Pablo Spr) 1 spray BID EACH NARE 09/16/17 09:00 09/19/17 08:35 Multivitamins (Theragran) 1 tab DAILY PO 09/16/17 09:00 09/19/17 08:31 Oxycodone HCl (Roxicodone) 5 mg Q4H PRN PO pain 3-5 09/16/17 10:15 09/17/17 00:31 Oxycodone HCl (Roxicodone) 10 mg Q4H PRN PO pain 6-10 09/16/17 10:15 09/19/17 00:13 Metoclopramide HCl (Reglan Inj) 5 mg Q8H PRN IV PUSH nausea 09/18/17 11:15 09/18/17 11:44 Cyanocobalamin (Vitamin B12) 2,000 mcg DAILY PO 09/18/17 14:00 09/19/17 08:30 Pantoprazole Sodium (Protonix) 40 mg DAILY PO 09/18/17 21:00 09/19/17 08:31 Metoclopramide HCl (Reglan Inj) 10 mg Q8HR IV PUSH 09/18/17 22:00 09/20/17 05:47 Promethazine HCl (Phenergan) 12.5 mg Q6H PO 09/18/17 21:00 09/20/17 04:19 Filgrastim (Neupogen Inj) 300 mcg DAILY@14 SQ 09/19/17 14:00 09/19/17 14:17 Levofloxacin (Levaquin) 500 mg DAILY PO 09/19/17 14:15 09/19/17 15:37 Objective Remarks GENERAL: Well-nourished, well-developed patient. SKIN: Warm and dry. HEAD: Normocephalic. EYES: No scleral icterus. No injection or drainage. CARDIOVASCULAR: Regular rate and rhythm without murmurs. RESPIRATORY: Breath sounds equal bilaterally. No accessory muscle use. EXTREMITIES: No cyanosis, or edema. MUSCULOSKELETAL: Adequate muscle tone. NEUROLOGICAL: No obvious focal deficit. Awake, alert, and oriented x3. PSYCHIATRIC: Appropriate mood and affect; insight and judgment normal. Assessment/Plan Problem List: (1) Fever and neutropenia ICD Codes: D70.9 - Neutropenia, unspecified; R50.81 - Fever presenting with conditions classified elsewhere Status: Acute Plan: 09/19: has remained afebrile for 24 hours. await blood cultures today. ok to switch to oral antibiotics. start Neupogen. 09/18: patient continuing to spike fevers despite antibiotics. will obtain repeat blood cultures and consult infectious disease. WBC continuing to drop, patient has not reached her stefani yet. --Post-chemotherapy day 10, status post Taxol and carboplatin chemotherapy, line 1, cycle 1. --BC no growth. --CXR: WNL --U/A: no infection 09/20/17: tmax 99.8 neutropenia has resolved oral abx with Flagyl and Levaquin 2nd blood culture, negative X 1 day OK to discharge home per waterfront director/onc once Ok'd with ID (2) Constipation ICD Codes: K59.00 - Constipation, unspecified Plan: --PRN laxatives Assessment 62y/o female with Stage IC, grade 3, ovarian cancer admitted with neutropenic fever. s/p exploratory laparotomy, resection of large pelvic mass and staging (prior admission) Mayte Franco Sep 20, 2017 07:14
[2017-09-20 07:25] LABS: BANDS 24 % (0-6); LYMPHOCYTES 17 % (9-44); MONOCYTES 7 % (0-8); NEUTROPHIL # MANUAL DIFF 4.7 TH/MM3 (1.8-7.7); POLYS (SEG NEUTROPHILS) 50 % (16-70)
[2017-09-20 08:21] VITALS: BP 92/52; PULSE 87; RESP 16; TEMP 99.4; O2SAT 95
[2017-09-20] MEDS: LACTOBACILLUS ACIDOPHILUS TAB PO SCH (08:32)
[2017-09-20] MEDS: CYANOCOBALAMIN 1,000 MCG TAB PO SCH (08:32)
[2017-09-20] MEDS: CHOLECALCIFEROL (VIT D3) 5000 UNIT CAP PO SCH (08:33)
[2017-09-20] MEDS: CALCIUM CARBONATE 1.25 GM (CA 500 MG) TAB PO SCH (08:33)
[2017-09-20] MEDS: MULTIVITAMIN TAB PO SCH (08:33)
[2017-09-20] MEDS: LEVOFLOXACIN 500 MG TAB PO SCH (08:33)
[2017-09-20] MEDS: ESTRADIOL 1 MG TAB PO SCH (08:33)
[2017-09-20] MEDS: DOCUSATE SODIUM 50 MG/SENNA 8.6 MG TAB PO SCH (08:33)
[2017-09-20] MEDS: PANTOPRAZOLE SOD 40 MG DELAYED RELEASE TAB PO SCH (08:33)
[2017-09-20] MEDS: FLUTICASONE PROPIONATE 50 MCG/ACT 16 GM NASAL SPRAY EACH NARE SCH (08:34)
[2017-09-20] MEDS: BUDESONIDE-FORMOTEROL 160/4.5 MCG INHALER INH SCH (08:34)
[2017-09-20] MEDS: DOCUSATE SODIUM 100 MG CAP PO SCH (08:34)
[2017-09-20] MEDS: SODIUM CHLORIDE 0.9% FLUSH 10 ML FLUSH IV FLUSH SCH (08:36)
[2017-09-20] MEDS: POLYETHYLENE GLYCOL 17 GM PKG PO SCH (08:37)
[2017-09-20] MEDS ORDERED: PHARMACY ORDERED LAB ONE (09:45)
[2017-09-20 12:12] VITALS: BP 99/69; PULSE 83; RESP 16; TEMP 97.7; O2SAT 96
--- NOTE | 2017-09-20 13:04 | HHI.PR ---
Addendum to Inpatient Note Addendum Reason: Additional Documentation Additional Information dw Dr Webb clinically doing good. Chart reviewed WBC improved. Vitals stable. Recs Levaquin for 2 more days then stop. Diflucan x 1 tab to be taken in 2 days one dose only. Probiotics Ok to DC from ID standpoint. Will sign off please call back if any change in clinical condition or questions. Angela Pop MD Sep 20, 2017 13:04
[2017-09-20] MEDS ORDERED: ZOFR4TAB3 SL (13:29)
[2017-09-20] MEDS ORDERED: DIFL100T PO (13:29)
[2017-09-20] MEDS ORDERED: LEVA500T33 PO (13:29)
[2017-09-20] MEDS ORDERED: POTASSIUM CHLORIDE 20 MEQ CONTROLLED RELEASE TAB PO ONE (13:30)
--- NOTE | 2017-09-20 13:31 | HHI.DCPOC ---
Discharge Care Plan Diagnosis: (1) Constipation (2) Fever and neutropenia (3) Gynecologic malignancy (4) Post-operative nausea and vomiting Goals to Promote Your Health * To prevent worsening of your condition and complications * To maintain your health at the optimal level Directions to Meet Your Goals Take your medications as prescribed Follow your dietary instruction Follow activity as directed Keep your appointments as scheduled Take your immunizations and boosters as scheduled If your symptoms worsen call your PCP, if no PCP go to Urgent Care Center or Emergency Room Smoking is Dangerous to Your Health. Avoid second hand smoke Call the 24-hour hour crisis hotline for domestic abuse at Brina Webb DO Sep 20, 2017 13:31
--- NOTE | 2017-09-20 13:38 | HHI.DS ---
Discharge Summary Admission Date Sep 16, 2017 at 00:47 Discharge Date: Sep 20, 2017 Admitting Diagnosis neutropenic fever (1) Fever and neutropenia ICD Code: D70.9 - Neutropenia, unspecified; R50.81 - Fever presenting with conditions classified elsewhere Diagnosis: Principal Status: Acute (2) Constipation ICD Code: K59.00 - Constipation, unspecified Diagnosis: Principal (3) Post-operative nausea and vomiting ICD Code: R11.2 - Nausea with vomiting, unspecified; Z98.890 - Other specified postprocedural states Status: Resolved (4) Gynecologic malignancy ICD Code: C57.9 - Malignant neoplasm of female genital organ, unspecified Procedures None Brief History - From Admission 62 y/o female with a history of ovarian cancer, asthma, and hypothyroidism presented to the ED with complaints of a fever of 101 at home. Patient just received her first chemo treatment on Wednesday and was told that if she ran a fever to come to the ED. She has associated chills and nausea. Denies any chest pain or sob. TESTING SPECIALIST Oncologist: Dr. Paul CBC/BMP: 09/20/17 0405 09/20/17 0405 Significant Findings Laboratory Tests Test 09/18/17 04:15 09/18/17 19:50 09/19/17 05:00 09/20/17 04:05 White Blood Count 1.5 TH/MM3 (4.0-11.0) 2.0 TH/MM3 (4.0-11.0) Red Blood Count 3.13 MIL/MM3 (4.00-5.30) 3.30 MIL/MM3 (4.00-5.30) 3.34 MIL/MM3 (4.00-5.30) Hemoglobin 10.3 GM/DL (11.6-15.3) 10.9 GM/DL (11.6-15.3) 10.9 GM/DL (11.6-15.3) Hematocrit 29.7 % (35.0-46.0) 31.5 % (35.0-46.0) 31.8 % (35.0-46.0) Band Neutrophils % 7 % (0-6) 15 % (0-6) 24 % (0-6) Monocytes % 18 % (0-8) 22 % (0-8) Neutrophils # (Manual) 0.9 TH/MM3 (1.8-7.7) 0.9 TH/MM3 (1.8-7.7) Random Glucose 123 MG/DL (74-106) 113 MG/DL (74-106) Calcium Level 7.5 MG/DL (8.5-10.1) 7.9 MG/DL (8.5-10.1) 8.2 MG/DL (8.5-10.1) Potassium Level 3.3 MEQ/L (3.5-5.1) Estimat Glomerular Filtration Rate 69 ML/MIN (>89) 74 ML/MIN (>89) 77 ML/MIN (>89) Direct Bilirubin 0.3 MG/DL (0.0-0.2) Aspartate Amino Transf (AST/SGOT) 64 U/L (15-37) 48 U/L (15-37) Alanine Aminotransferase (ALT/SGPT) 97 U/L (10-53) 81 U/L (10-53) Alkaline Phosphatase 265 U/L (45-117) 286 U/L (45-117) Total Protein 4.9 GM/DL (6.4-8.2) 4.9 GM/DL (6.4-8.2) Albumin 2.0 GM/DL (3.4-5.0) 2.0 GM/DL (3.4-5.0) Monocytes (%) (Auto) 20.2 % (0.0-8.0) Eosinophils (%) (Auto) 5.9 % (0.0-4.0) Neutrophils # (Auto) 0.8 TH/MM3 (1.8-7.7) Lymphocytes # (Auto) 0.7 TH/MM3 (1.0-4.8) Chloride Level 109 MEQ/L (98-107) Neutrophils (%) (Auto) 73.0 % (16.0-70.0) Imaging Last Impressions Chest X-Ray 09/18/17 0000 Signed Impressions: CONCLUSION: Pvdnub-g-[id number] in superior vena cava. Mild basilar atelectasis. No significant e ffusion. No pneumothorax. Abdomen X-Ray 09/16/17 0000 Signed Impressions: CONCLUSION: No acute abdominal abnormality is identified. Additionally, no significant stoo l is appreciated within the colon. PE at Discharge GENERAL: This is a well-nourished, well-developed patient, in no apparent distress. SKIN: No rashes, ecchymoses or lesions. Cool and dry. HEAD: Atraumatic. Normocephalic. EYES: Pupils equal round and reactive. Extraocular motions intact. CARDIOVASCULAR: Regular rate and rhythm without murmurs, gallops, or rubs. RESPIRATORY: Clear to auscultation. Breath sounds equal bilaterally. No wheezes , rales, or rhonchi. GASTROINTESTINAL: Abdomen soft, nondistended. Mildly tender centrally. No guarding. Decreased bowel sounds. MUSCULOSKELETAL: Extremities without clubbing, cyanosis, or edema. NEUROLOGICAL: Awake and alert. Normal speech. Pt update on day of discharge The patient was resting comfortably in bed. She says she has been passing gas. She wanted to go home. She has not thrown up. She has tolerated food today. Family at the bedside. Discussed with nursing. Hospital Course Neutropenic fever s/p chemotherapy TESTING SPECIALIST oncology was consulted. She was started on broad spectrum antibiotics. ID was consulted. She was placed on neutropenic precautions. She received Neupogen. Antibiotics were switched to PO Levaquin and fluconazole per ID. She will follow up with oncology as an outpt. She will have a repeat CBC in 3-5 days. Transaminitis We monitored her LFTs, which were improving. She will have a follow up CMP as an outpt. Hyponatremia/ Hypokalemia S/p IVF for hydration. We repleted potassium. Her diet was advanced. She received antiemetics as needed. Constipation KUB unremarkable. Improved with bowel regimen. Hypotension Propranolol was discontinued. She will follow up with her PCP. Pt Condition on Discharge: Stable Discharge Disposition: Discharge Home Discharge Time: > 30 minutes Discharge Instructions DIET: Follow Instructions for: As Tolerated, No Restrictions Activities you can perform: Regular-No Restrictions Follow up Referrals: Oncology - [address] Paul PCP Follow-up New Orders: CBC WITH DIFF - 3-5 Days COMP MET PROF (CMP) - 3-5 Days New Medications: Ondansetron Odt (Zofran Odt) 4 Mg Tab 4 MG SL Q6HR PRN for Nausea/Vomiting, #30 TAB 0 Refills Fluconazole (Diflucan) 100 Mg Tab 100 MG PO ONCE for Infection, #1 TAB Take on 09/22 Levofloxacin (Levaquin) 500 Mg Tablet 500 MG PO DAILY for Infection, #2 TAB Take first dose 09/21 Continued Medications: Acetaminophen (Tylenol) 325 Mg Tab 325 MG PO Q4H PRN for PAIN SCALE 1 TO 10, TAB 0 Refills Budesonide-Formoterol Inh (Symbicort Inh) 160-4.5 Mcg/Act Aero 2 PUFF INH Q12HR, #1 INHALER 0 Refills Calcium Carbonate (Calcium Oyster Shell) 1,250 Mg Tab 1200 MG PO DAILY for Calcium Supplement, TAB 0 Refills 1,250 mg calcium carbonate (500 mg elemental calcium) Calcium Carbonate (Antacid) (Tums) 500 Mg Chew 500 MG CHEW, TAB 0 Refills Cholecalciferol (Vitamin D3) 5,000 Unit Cap 5000 UNITS PO DAILY for Nutritional Supplement, #30 CAP 0 Refills Cyanocobalamin (Vitamin B-12) (Vitamin B12) 2,500 Mcg Tab.chew 2 TAB DAILY Diphenhydramine HCl (Wal-Dryl Allergy) 25 Mg Cap 1 CAPLET PO DAILY Docusate Sodium (Dulcolax Stool Softener) 100 Mg Cap 100 MG PO BID for Prevent Constipation, #60 CAP 0 Refills Estradiol (Estradiol) 2 Mg Tab 2 MG PO DAILY for Estrogen Supplements, #30 TAB 0 Refills Furosemide (Furosemide) 40 Mg Tab 40 MG PO DAILY PRN for Control Inflammation, #30 TAB 0 Refills TAKES WHEN LEG SWELLING OCCURS Lactobacillus Acidophilus (Probiotic) 10 Billion Cell Cap 1 CAP PO DAILY for Nutritional Supplement, #90 CAP 0 Refills Levothyroxine (Levothyroxine) 125 Mcg Tab 125 MCG PO HS for Thyroid, #30 TAB 0 Refills Lorazepam (Lorazepam) 0.5 Mg Tab 0.5 MG PO Q6H PRN for ANXIETY, TAB 0 Refills Multiple Vitamins W/ Minerals (One Daily For Women 50+A) 400 Mcg-120 Mg Tab 1 TAB PO DAILY Oxycodone (Oxycodone) 5 Mg Cap 5 MG PO Q4H PRN for PAIN, CAP 0 Refills Polyethylene Glycol 3350 Powder (Miralax Powder) 17 Gm Powd 17 GM PO DAILY for Constipation, #1 CAN 0 Refills Mix and dissolve one measuring cap-ful (17 grams) in water or juice. Temazepam (Temazepam) 15 Mg Cap 15 MG PO HS PRN for INSOMNIA, #30 CAP 0 Refills Triamcinolone Nasal (Nasacort Allergy 24Hr Nasal) 55 Mcg Spr 1 SPRAY EACH NARE BID for Allergies, #1 BOTTLE 0 Refills Discontinued Medications: Propranolol ER 24 HR (Propranolol ER 24 HR) 60 Mg Cap 60 MG PO DAILY, #30 CAP 0 Refills Brian Webb DO Sep 20, 2017 13:38
[2017-09-20] MEDS: FILGRASTIM 300 MCG/ML VIAL SQ SCH (13:39)
[2017-09-20] MEDS ORDERED: SODIUM CHLORIDE 0.9% FLUSH 10 ML FLUSH IV FLUSH PRN (13:45)
[2017-09-20] MEDS ORDERED: FLUCONAZOLE 100 MG TAB PO SCH (14:15)
== END 2017-09-20 14:40 | disposition home or self-care (01) | DRG 809 ==
LOC: NEPE 22:07 → NEDA 09-16 00:47 → NEDH 09-16 04:16 → HCIN 09-16 08:01
PROVIDERS: ADMIT Hospitalist; ATTEND Hospitalist
DX: D70.9 Neutropenia, unspecified (principal); C56.9 Malignant neoplasm of unspecified ovary; E87.1 Hypo-osmolality and hyponatremia; I95.9 Hypotension, unspecified; R50.81 Fever presenting with conditions classified elsewhere; E03.9 Hypothyroidism, unspecified; E78.2 Mixed hyperlipidemia; E87.6 Hypokalemia; J45.909 Unspecified asthma, uncomplicated; K59.00 Constipation, unspecified; G43.909 Migraine, unspecified, not intractable, without status migrainosus; R11.2 Nausea with vomiting, unspecified; R74.0 Nonspecific elevation of levels of transaminase and lactic acid dehydrogenase [LDH]; Z88.5 Allergy status to narcotic agent; Z90.710 Acquired absence of both cervix and uterus; Z91.048 Other nonmedicinal substance allergy status
CPT/HCPCS: 71045; 71046; 74018; 80048; 80053; 80076; 80202; 81001; 82550; 83690; 83735; 84484; 85007; 85025; 85027; 87040; 96374; J0692; J0780; J1442; J1642; J1650; J2550; J2765; J3370; J3480; J7030; J7042; J7050; Q0169